=== PATIENT | female | born 1945 | race African-American/Black ===

== ENCOUNTER 2016-09-28 15:03 | Emergency (ER) | payer MEDICARE, OTHER ==
[2016-09-28 16:08] LABS: #Basophils 0.1 thou/uL (0.0-0.2); #Eosinphils 0.5 thou/uL (0.0-0.7); #Lymphocytes 1.2 thou/uL (1.20-3.40); #Monocytes 0.4 thou/uL (0.11-0.59); #Neutrophils 0.7 thou/uL (1.40-6.50); %Basophils 1.9 % (0.0-1.0); %Eosinophils 16.1 % (0.0-10.0); %Lymphocytes 42.7 % (21.0-51.0); %Monocytes 15.1 % (0.0-10.0); Hematocrit 30.9 % (36.0-47.0); Mean Platelet Volume 8.2 fL (7.4-10.4); Red Blood Cell (RBC) Count 2.93 mill/uL (4.20-5.40); White Blood Cell (WBC) Count 2.9 thou/uL (4.8-10.8)
[2016-09-28 16:17] LABS: ALT (SGPT) Less than 6 U/L (0-55); AST (SGOT) 16 U/L (5-34); Alkaline Phosphatase 70 U/L (40-150); Anion Gap 15 mmol/L (10-20); BUN (Urea Nitrogen) 26 mg/dL (9.8-20.1); Bilirubin, Total 0.5 mg/dL (0.2-1.2); Calc. Creatinine Clearance 0 mL/min (70-130); Calcium 8.3 mg/dL (7.8-10.44); Carbon Dioxide 28 mmol/L (23-31); Chloride 100 mmol/L (98-107); Estimated GFR-MDRD 9; Globulin 4.7 g/dL (2.4-3.5)
--- NOTE | 2016-09-28 16:32 | ERRECORD ---
[facility] EMERGENCY RECORD HPI WEAK-DIZZY (18:25 SHAN) CHIEF COMPLAINT: Patient presents for evaluation of weakness, Patient presents for evaluation of adult female on dialysis, missed her lunch; became weak and came in for evaluation, had dialysis yesterday, was on diabetic medications some time ago. HISTORIAN: History provided by patient. TIME COURSE: Gradual onset of symptoms. EXACERBATED BY: Patient's condition exacerbated by nothing. RELIEVED BY: Patient's condition relieved by nothing. ROS CONSTITUTIONAL: Gives a general feeling of not doing well. (15:17 SHAN) CONSTITUTIONAL PED: Negative constitutional review of systems. (18:26 SHAN) EYES: Negative eye review of systems. (15:17 SHAN) EYES PED: Negative eye review of systems. (18:26 SHAN) ENT: Negative ears, nose, throat review of systems. (15:17 SHAN) ENT PED: Negative ears, nose, throat review of systems. (18:26 SHAN) CARDIOVASCULAR: Negative cardiovascular review of systems. (15:17 SHAN) CARDIOVASCULAR PED: Negative cardiovascular review of systems. (18:26 SHAN) RESPIRATORY: Negative respiratory review of systems. (15:17 SHAN) RESPIRATORY PED: Negative respiratory review of systems. (18:26 SHAN) GI: Negative gastrointestinal review of systems. (15:17 SHAN) GI PED: Negative gastrointestinal review of systems. (18:26 SHAN) GENITOURINARY FEMALE: Negative genitourinary review of systems. (15:17 SHAN) GENITOURINARY FEMALE PED: Negative genitourinary review of systems. (18:26 SHAN) MUSCULOSKELETAL: Negative musculoskeletal review of systems. (15:17 SHAN) MUSCULOSKELETAL PED: Negative musculoskeletal review of systems. (18:26 SHAN) SKIN: Negative skin review of systems. (15:17 SHAN) SKIN PED: Negative skin review of systems. (18:26 SHAN) NEUROLOGIC: Negative neurologic review of systems. (15:17 SHAN) NEUROLOGIC PED: Negative neurologic review of systems. (18:26 SHAN) ENDOCRINE: Negative endocrine review of systems. (15:17 SHAN) ENDOCRINE PED: Negative endocrine review of systems. (18:26 SHAN) NOTES: All systems reviewed, negative except as described above. (15:17 SHAN) PAST MEDICAL HISTORY (15:15 IHAC) MEDICAL HISTORY: Notes: c/o gen. weakness, Past &a-1R&a+25V*p+0X*[id number]*c202B*c15G*c2P*p-0X&a-25V&a+1R Name: Nimco Singh : 1945 F71 MedRec: [id number] AcctNum: [id number] Prepared: [facility] Sep 28, 2016 18:32 by Interface Page 1 of 5 pMD [facility] EMERGENCY RECORD medical history includes pulmonary disease, Hypoxia, uses O2 at home 2L at home., Flu vaccine up to date, Tetanus immunization up to date, Pneumococcal vaccine up to date, Past medical history includes renal disease, end stage renal disease, dialysis MWF, history includes cardiac history, congestive heart failure,history of diabetes, Type II, diet controlled, hypertension, which has been treated. FEMALE SURGICAL HISTORY: Surgical history of appendectomy, Surgical history of dialysis shunt, to the right upper extremity, Surgical history of hysterectomy. Dialysis M/W/F. PSYCHIATRIC HISTORY: No previous psychiatric history,. verified 08/21/16. SOCIAL HISTORY: Patient denies alcohol use, Patient has no smoking history, Lives at home, with family, Patient denies alcohol use, Patient denies drug use, Patient has no smoking history. KNOWN ALLERGIES No Known Allergies (Unconfirmed) No Known Drug Allergies CURRENT MEDICATIONS (15:35 IHAC) isosorbide mononitrate: TABLET, EXTENDED RELEASE 24 HR : Strength - 30 mg : ORAL Patient Dose: 1 tab(s) Oral once a day. carvedilol: TABLET : Strength - 6.25 mg : ORAL Patient Dose: 1 tab(s) Oral 2 times a day (with meals). hydrALAZINE: TABLET : Strength - 100 mg : ORAL Patient Dose: 1 tab(s) Oral 3 times a day. pravastatin: TABLET : Strength - 20 mg : ORAL Patient Dose: 1 tab(s) Oral once a day (at bedtime). Sensipar: TABLET : Strength - 30 mg : ORAL Patient Dose: 1 tab(s) Oral once a day (in the morning). cloNIDine HCl: TABLET : Strength - 0.3 mg : ORAL Patient Dose: 1 tab(s) Oral 2 times a day. NIFEdipine: TABLET, EXTENDED RELEASE 24 HR : Strength - 90 mg : ORAL Patient Dose: 1 tab(s) Oral once a day. minoxidil: TABLET : Strength - 2.5 mg : ORAL Patient Dose: 2 tab(s) Oral once a day. pantoprazole: TABLET, DELAYED RELEASE (ENTERIC COATED) : Strength - 40 mg : ORAL Patient Dose: 1 tab(s) Oral 2 times a day. albuterol: AEROSOL (GRAM) : Strength - 90 mcg : INHALATION &a-1R&a+25V*p+0X*[id number]*c202B*c15G*c2P*p-0X&a-25V&a+1R Name: Nimco Singh : 1945 F71 MedRec: [id number] AcctNum: [id number] Prepared: [facility] Sep 28, 2016 18:32 by Interface Page 2 of 5 pMD [facility] EMERGENCY RECORD Patient Dose: 2 puff(s) Inhaler every 6 hours PRN. Procrit: VIAL (ML) : Strength - 10,000 unit/mL : INJECTION Patient Dose: 7,500 units Subcutaneous. aspirin: TABLET : Strength - 81 mg : ORAL Patient Dose: 1 tab(s) Oral once a day. Renvela: POWDER IN PACKET (EA) : Strength - 2.4 gram : ORAL Patient Dose: 2.4 g Oral 3 times a day. VITAL SIGNS VITAL SIGNS: BP: 113/52, Pulse: 98, Resp: 20, Temp: 98.0 (Oral), Pain: 0, O2 sat: 98 on Room Air, Time: 09/28/2016 15:07. (15:07 IHAC) BP: 110/43, Pulse: 63, Resp: 17, Time: 09/28/2016 15:30. (15:30 BDON) BP: 101/32, Pulse: 63, Resp: 17, O2 sat: 98, Time: 09/28/2016 16:32. (16:32 BDON) BP: 100/38, Pulse: 60, Resp: 20, O2 sat: 96, Time: 09/28/2016 16:40. (16:40 IHAC) PHYSICAL EXAM CONSTITUTIONAL PED: Patient afebrile, Patient alert, happy, smiling, interactive and playful, consolable, well hydrated, Patient appears pain free. (18:26 SHAN) CONSTITUTIONAL: Patient afebrile, Pulse normal, Blood pressure normal, Respiratory rate normal, Patient appears non toxic, Patient appears pain free, Patient alert and oriented to person, place and time, On arrival, the affect was a little dulled; but could talk. accucheck was 67; with sugar administration and later food improved to her normal per her own statements; discussed results. (15:17 SHAN) HEAD: Head exam included findings of head atraumatic, normocephalic. (15:17 SHAN) HEAD PED: Head exam included findings of head atraumatic, normocephalic. (18:26 SHAN) EYES: Eye exam normal, Eye exam included findings of eyelids normal to inspection, Pupils equally round and reactive to light, Extraocular muscles intact. (15:17 SHAN) ENT: ENT exam normal, Pharynx exam normal, Uvula exam normal, Tonsil exam normal. (15:17 SHAN) ENT PED: External Ear exam normal, tympanic membranes normal, hearing normal, Nose exam normal, Turbinates normal, Mouth exam normal, teeth normal, Pharynx exam normal, Uvula exam normal, Tonsil exam normal. (18:26 SHAN) NECK: Neck exam normal, Neck exam included findings of normal range of motion, Trachea midline. (15:17 SHAN) NECK PED: Neck exam included findings of normal range of motion, Trachea midline, Thyroid normal. (18:26 SHAN) RESPIRATORY CHEST: Respiratory and chest exam normal, Chest exam included findings of chest movement symmetrical, Chest expansion &a-1R&a+25V*p+0X*[id number]*c202B*c15G*c2P*p-0X&a-25V&a+1R Name: Nimco Singh : 1945 F71 MedRec: [id number] AcctNum: [id number] Prepared: [facility] Sep 28, 2016 18:32 by Interface Page 3 of 5 pMD [facility] EMERGENCY RECORD equal, Percussion normal. (15:17 SHAN) RESPIRATORY CHEST PED: Chest and respiratory exam findings included chest non tender, Respiratory effort easy and unlabored, with good air exchange. (18:26 SHAN) CARDIOVASCULAR: Cardiovascular assessment normal, Cardiovascular exam included findings of heart rate regular rate and rhythm, Heart sounds normal. (15:17 SHAN) CARDIOVASCULAR PED: Cardiovascular exam included findings of heart rate regular rate and rhythm, Heart sounds normal, Capillary refill less than 2 seconds. (18:26 SHAN) ABDOMEN FEMALE: Abdominal exam normal, Abdominal exam included findings of abdomen nontender, Bowel sounds normal. (15:17 SHAN) ABDOMEN PED: Abdominal exam included findings of abdomen nontender, Bowel sounds normal. (18:26 SHAN) BACK: Back exam normal. (15:17 SHAN) UPPER EXTREMITY: Upper extremity exam normal, Upper extremity exam included findings of inspection normal, Range of motion normal. (15:17 SHAN) LOWER EXTREMITY: Lower extremity exam normal, Lower extremity exam included findings of inspection normal, Range of motion normal. (15:17 SHAN) NEURO: Neuro exam normal, Oriented, but keeps relating a feeling things not being right. (15:17 SHAN) NEURO PED: Neuro exam normal. (18:26 SHAN) SKIN: Skin exam normal. (15:17 SHAN) PSYCHIATRIC: Psychiatric exam normal, Psychiatric exam included findings of patient oriented to person place and time, Normal affect, Judgment normal, Insight normal. (15:17 SHAN) DOCTOR NOTES (16:24 SHAN) TEXT: accucheck was low; symptoms resolved with po glucose and food. PATIENT STATUS: Patient has improved since arrival to emergency department. PATIENT PLAN: The patient will be discharged. DATA REVIEWED: Lab data reviewed, Reviewed EKG. PROBLEM LIST No recorded problems DIAGNOSIS (16:25 SHAN) FINAL: PRIMARY: Hypoglycemia (unspecified), ADDITIONAL: hx of diabetes, renal failure. PRESCRIPTION No recorded prescriptions DISPOSITION PATIENT: Disposition Type: Discharge, Disposition: *Discharge Home. (16:25 SHAN) &a-1R&a+25V*p+0X*[id number]*c202B*c15G*c2P*p-0X&a-25V&a+1R Name: Nimco Singh : 1945 F71 MedRec: [id number] AcctNum: [id number] Prepared: [facility] Sep 28, 2016 18:32 by Interface Page 4 of 5 pMD [facility] EMERGENCY RECORD Patient left the department. (16:52 [facility] Alva: MARISA=SONIA Herrera Bettye IHAC=Olga Parr=MD Zak, Carlos &a-1R&a+25V*p+0X*[id number]*c202B*c15G*c2P*p-0X&a-25V&a+1R Name: Nimco Singh : 1945 F71 MedRec: [id number] AcctNum: [id number] Prepared: [facility] Sep 28, 2016 18:32 by Interface Page 5 of 5 pMD MTDD
--- NOTE | 2016-09-28 16:38 | PICIS ---
[facility] EMERGENCY RECORD TRIAGE (15:13 IHAC) PATIENT: NAME: Nimco Singh, AGE: 71, GENDER: female, : Sun1945, TIME OF GREET: SunSep 28, 2016 15:04, PREFERRED LANGUAGE: Polish, ETHNICITY: Not or , ECODE BILLING MAP: [facility], SSN: [id number], Zip Code: [address], KG WEIGHT: 56.70, PHONE: , , , PERSON ID: [id number], PCP: MD SHANDA, JIGAR. (15:13 IHAC) COMPLAINT: NOT FEELING GOOD. (15:13 IHAC) ADMISSION: URGENCY: 4 Non Urgent, ADMISSION SOURCE: Home, TRANSPORT: CAR, BED: ER -02. (15:13 IHAC) ASSESSMENT: Assessment: c/o gen. weakness. (15:15 IHAC) SIRS SCORING: Heart Rate 55-109 (0), Temp range 96.8-101.1 (0), respiratory rate 12-24 (0). (15:15 IHAC) PROVIDERS: TRIAGE NURSE: Olga Parr. (15:13 IHAC) VITAL SIGNS: BP 113/52, Pulse 98, Resp 20, Temp 98.0, (Oral), Pain 0, O2 Sat 98, on Room Air, Time 09/28/2016 15:07. (15:07 IHAC) PREVIOUS VISIT ALLERGIES: No Known Drug Allergies. (15:13 IHAC) No Known Drug Allergies. (15:15 IHAC) KNOWN ALLERGIES No Known Allergies (Unconfirmed) No Known Drug Allergies CURRENT MEDICATIONS (15:35 IHAC) isosorbide mononitrate: TABLET, EXTENDED RELEASE 24 HR : Strength - 30 mg : ORAL Patient Dose: 1 tab(s) Oral once a day. carvedilol: TABLET : Strength - 6.25 mg : ORAL Patient Dose: 1 tab(s) Oral 2 times a day (with meals). hydrALAZINE: TABLET : Strength - 100 mg : ORAL Patient Dose: 1 tab(s) Oral 3 times a day. pravastatin: TABLET : Strength - 20 mg : ORAL Patient Dose: 1 tab(s) Oral once a day (at bedtime). Sensipar: TABLET : Strength - 30 mg : ORAL Patient Dose: 1 tab(s) Oral once a day (in the morning). cloNIDine HCl: TABLET : Strength - 0.3 mg : ORAL Patient Dose: 1 tab(s) Oral 2 times a day. NIFEdipine: TABLET, EXTENDED RELEASE 24 HR : Strength - 90 mg : ORAL Patient Dose: 1 tab(s) Oral once a day. minoxidil: TABLET : Strength - 2.5 mg : ORAL Patient Dose: 2 tab(s) Oral once a day. pantoprazole: &a-1R&a+25V*p+0X*c4923L*c202B*c15G*c2P*p-0X&a-25V&a+1R Name: Nimco Singh : 1945 F71 MedRec: [id number] AcctNum: [id number] Prepared: [facility] Sep 28, 2016 18:38 by Interface Page 1 of 9 pMD [facility] EMERGENCY RECORD TABLET, DELAYED RELEASE (ENTERIC COATED) : Strength - 40 mg : ORAL Patient Dose: 1 tab(s) Oral 2 times a day. albuterol: AEROSOL (GRAM) : Strength - 90 mcg : INHALATION Patient Dose: 2 puff(s) Inhaler every 6 hours PRN. Procrit: VIAL (ML) : Strength - 10,000 unit/mL : INJECTION Patient Dose: 7,500 units Subcutaneous. aspirin: TABLET : Strength - 81 mg : ORAL Patient Dose: 1 tab(s) Oral once a day. Renvela: POWDER IN PACKET (EA) : Strength - 2.4 gram : ORAL Patient Dose: 2.4 g Oral 3 times a day. VITAL SIGNS VITAL SIGNS: BP: 113/52, Pulse: 98, Resp: 20, Temp: 98.0 (Oral), Pain: 0, O2 sat: 98 on Room Air, Time: 09/28/2016 15:07. (15:07 IHAC) BP: 110/43, Pulse: 63, Resp: 17, Time: 09/28/2016 15:30. (15:30 BDON) BP: 101/32, Pulse: 63, Resp: 17, O2 sat: 98, Time: 09/28/2016 16:32. (16:32 BDON) BP: 100/38, Pulse: 60, Resp: 20, O2 sat: 96, Time: 09/28/2016 16:40. (16:40 IHAC) NURSING ASSESSMENT: CARDIOVASCULAR (15:38 IHAC) CONSTITUTIONAL: Complex assessment performed, Patient arrives ambulatory, Gait steady, History obtained from patient, Patient appears, generally ill, Patient cooperative, Patient alert, Oriented to person, place and time, Skin warm, Skin dry, Skin normal in color, Mucous membranes, dry, Patient complains of gen.weakness, REPORTS GEN. WEAKNESS THIS AM MALAISE AND POOR APPETITE. PAIN: No sudden onset of pain. RESPIRATORY/CHEST: Lungs auscultated, Breath sounds diminished, Respiratory assessment findings include respiratory effort easy, Respirations regular, Conversing normally, Neck and chest exam findings include trachea midline, Chest expansion equal, Chest movement symmetrical, Notes: GLUCOSE READING OF 67 O.J PROVIDED. SAFETY: Side rails up, Cart/Stretcher in lowest position, Call light within reach, Hospital ID band on. NURSING PROCEDURE: BEDSIDE TESTING PATIENT IDENTIFIER: Patient actively involved in identification process, Patient's identity verified by patient stating name, Patient's identity verified by patient stating date, Patient's identity verified by hospital ID bracelet. (15:20 IHAC) GLUCOSE: Glucose testing indicated for diabetic patient, Capillary blood sample, Result (mg/dl) 67. (15:15 MSPE) Glucose testing indicated for hypoglycemia, Notes: GLUCOSE OF 67 VIA &a-1R&a+25V*p+0X*a1344Z*c202B*c15G*c2P*p-0X&a-25V&a+1R Name: Nimco Singh : 1945 F71 MedRec: [id number] AcctNum: [id number] Prepared: [facility] Sep 28, 2016 18:38 by Interface Page 2 of 9 pMD [facility] EMERGENCY RECORD ACCUCHECK. DONE PER EDITH SCOTT. (15:20 IHAC) Glucose testing indicated for hypoglycemia, Notes: GLUCOSE OF 127 PER GLUCOMETER. (16:20 IHAC) FOLLOW-UP: After procedure, results given to Dr. Crespo, Notes: will give po OJ & feed pt, per MD. (15:15 MSPE) SAFETY: Side rails up, Cart/Stretcher in lowest position, Call light within reach, Hospital ID band on. (15:20 IHAC) Side rails up, Cart/Stretcher in lowest position, Call light within reach, Hospital ID band on. (16:20 IHAC) NURSING PROCEDURE: DISCHARGE NOTE (16:48 IHAC) DISCHARGE: Patient discharged to home, ambulating with assistance, family driving, accompanied by other family member, Summary of Care printed/ provided, Patient requested and was provided an electronic copy of Discharge Instructions, Transition record given to patient, Simple or moderate discharge teaching performed, Above person(s) verbalized understanding of discharge instructions and follow-up care, Patient discharged by. BELONGINGS: Belongings and valuables with patient at time of discharge include:, Belongings remain with patient. SAFETY: Side rails up, Cart/Stretcher in lowest position, Call light within reach, Hospital ID band on. NURSING PROCEDURE: EKG CHART (15:19 MSPE) EKG: EKG indicated for doesn't feel right, 12 lead EKG performed on the left chest, done by Mino Herrera RN. FOLLOW-UP: After procedure, EKG for interpretation given to Dr. Crespo. NURSING PROCEDURE: IV (15:25 MSPE) IV SITE 1: IV established, in two attempts, Unable to obtain IV access. NURSING PROCEDURE: LAB DRAW (15:45 IHAC) PATIENT IDENTIFIER: Patient actively involved in identification process. LAB DRAW: Notes: UNABLE TO ACCESS IV. LAB DRAWN BY CONNER FROM LAB. SAFETY: Side rails up, Cart/Stretcher in lowest position, Call light within reach, Hospital ID band on. NURSING PROCEDURE: NURSE NOTES (15:32 BDON) NURSES NOTES: Beverage given to patient, Meal tray given to patient. ORDER DETAILS Order Name: BLOOD GLUCOSE MONITOR, Status: Done, Time: 15:18 09/28/2016, User: CAROLINA, - Ordered for: MD Zak, Carlos, &a-1R&a+25V*p+0X*n9134O*c202B*c15G*c2P*p-0X&a-25V&a+1R Name: Nimco Singh : 1945 F71 MedRec: [id number] AcctNum: [id number] Prepared: [facility] Sep 28, 2016 18:38 by Interface Page 3 of 9 pMD [facility] EMERGENCY RECORD - Entered by: MD Crespo Stanley - [place] Sep 28, 2016 15:15, - Quantity: 1, Order Name: SURGICAL TECH ED, Status: Done, Time: 15:32 09/28/2016, User: MARISA, - Ordered for: MD Crespo Stanley, - Entered by: MD Crespo Stanley - [place] Sep 28, 2016 15:15, - Quantity: 1, Order Name: CBC with Differential, Status: Active, Time: 15:15 09/28/2016, User: ALYSIA, - Ordered for: MD Crespo Stanley, - Entered by: MD Crespo Stanley - [place] Sep 28, 2016 15:15, - Quantity: 1, Order Name: CBC with Differential, Status: Active, Time: 16:47 09/28/2016, User: ALYSIA, - Ordered for: MD Crespo Stanley, - Entered by: MD Crespo Stanley - [place] Sep 28, 2016 16:47, - Quantity: 1, Order Name: Comprehensive Metabolic Panel, Status: Active, Time: 15:15 09/28/2016, User: ALYSIA, - Ordered for: MD Crespo Stanley, - Entered by: MD Crespo Stanley - [place] Sep 28, 2016 15:15, - Quantity: 1, Order Name: Culture, Urine, Status: Active, Time: 15:15 09/28/2016, User: ALYSIA, - Ordered for: MD Crespo Stanley, - Entered by: MD Crespo Stanley - [place] Sep 28, 2016 15:15, - Quantity: 1, Order Name: EKG 12 Lead in Emergency Room, Status: Active, Time: 15:15 09/28/2016, User: ALYSIA, - Ordered for: MD Crespo Stanley, - Entered by: MD Crespo Stanley - [place] Sep 28, 2016 15:15, - Quantity: 1, Order Name: Urinalysis with Microscopic, Status: Active, Time: 15:15 09/28/2016, User: ALYSIA, - Ordered for: MD Crespo Stanley, - Entered by: MD Crespo Stanley - [facility] Sep 28, 2016 15:15, - Quantity: 1, Order Name: XR Wrist 3 Rt View STANDARD, Status: Canceled, Time: 17:09 09/28/2016, User: System, - Ordered for: MD Crespo Stanley, - Entered by: MD Crespo Stanley - [facility] Sep 28, 2016 16:46, - Quantity: 1. HPI WEAK-DIZZY (18:25 SHAN) CHIEF COMPLAINT: Patient presents for evaluation of weakness, Patient presents for evaluation of adult female on dialysis, missed her lunch; became weak and came in for evaluation, had dialysis yesterday, was on diabetic medications some time ago. HISTORIAN: History provided by patient. TIME COURSE: Gradual onset of symptoms. &a-1R&a+25V*p+0X*k6401E*c202B*c15G*c2P*p-0X&a-25V&a+1R Name: Nimco Singh : 1945 F71 MedRec: [id number] AcctNum: [id number] Prepared: [facility] Sep 28, 2016 18:38 by Interface Page 4 of 9 pMD [facility] EMERGENCY RECORD EXACERBATED BY: Patient's condition exacerbated by nothing. RELIEVED BY: Patient's condition relieved by nothing. ROS CONSTITUTIONAL: Gives a general feeling of not doing well. (15:17 SHAN) CONSTITUTIONAL PED: Negative constitutional review of systems. (18:26 SHAN) EYES: Negative eye review of systems. (15:17 SHAN) EYES PED: Negative eye review of systems. (18:26 SHAN) ENT: Negative ears, nose, throat review of systems. (15:17 SHAN) ENT PED: Negative ears, nose, throat review of systems. (18:26 SHAN) CARDIOVASCULAR: Negative cardiovascular review of systems. (15:17 SHAN) CARDIOVASCULAR PED: Negative cardiovascular review of systems. (18:26 SHAN) RESPIRATORY: Negative respiratory review of systems. (15:17 SHAN) RESPIRATORY PED: Negative respiratory review of systems. (18:26 SHAN) GI: Negative gastrointestinal review of systems. (15:17 SHAN) GI PED: Negative gastrointestinal review of systems. (18:26 SHAN) GENITOURINARY FEMALE: Negative genitourinary review of systems. (15:17 SHAN) GENITOURINARY FEMALE PED: Negative genitourinary review of systems. (18:26 SHAN) MUSCULOSKELETAL: Negative musculoskeletal review of systems. (15:17 SHAN) MUSCULOSKELETAL PED: Negative musculoskeletal review of systems. (18:26 SHAN) SKIN: Negative skin review of systems. (15:17 SHAN) SKIN PED: Negative skin review of systems. (18:26 SHAN) NEUROLOGIC: Negative neurologic review of systems. (15:17 SHAN) NEUROLOGIC PED: Negative neurologic review of systems. (18:26 SHAN) ENDOCRINE: Negative endocrine review of systems. (15:17 SHAN) ENDOCRINE PED: Negative endocrine review of systems. (18:26 SHAN) NOTES: All systems reviewed, negative except as described above. (15:17 SHAN) PAST MEDICAL HISTORY (15:15 IHAC) MEDICAL HISTORY: Notes: c/o gen. weakness, Past medical history includes pulmonary disease, Hypoxia, uses O2 at home 2L at home., Flu vaccine up to date, Tetanus immunization up to date, Pneumococcal vaccine up to date, Past medical history includes renal disease, end stage renal disease, dialysis MWF, history includes cardiac history, congestive heart failure,history of diabetes, Type II, diet controlled, hypertension, which has been treated. FEMALE SURGICAL HISTORY: Surgical history of appendectomy, &a-1R&a+25V*p+0X*f2254B*c202B*c15G*c2P*p-0X&a-25V&a+1R Name: Nimco Singh : 1945 F71 MedRec: [id number] AcctNum: [id number] Prepared: [facility] Sep 28, 2016 18:38 by Interface Page 5 of 9 pMD [facility] EMERGENCY RECORD Surgical history of dialysis shunt, to the right upper extremity, Surgical history of hysterectomy. Dialysis M/W/F. PSYCHIATRIC HISTORY: No previous psychiatric history,. verified 08/21/16. SOCIAL HISTORY: Patient denies alcohol use, Patient has no smoking history, Lives at home, with family, Patient denies alcohol use, Patient denies drug use, Patient has no smoking history. PHYSICAL EXAM CONSTITUTIONAL PED: Patient afebrile, Patient alert, happy, smiling, interactive and playful, consolable, well hydrated, Patient appears pain free. (18:26 SHAN) CONSTITUTIONAL: Patient afebrile, Pulse normal, Blood pressure normal, Respiratory rate normal, Patient appears non toxic, Patient appears pain free, Patient alert and oriented to person, place and time, On arrival, the affect was a little dulled; but could talk. accucheck was 67; with sugar administration and later food improved to her normal per her own statements; discussed results. (15:17 SHAN) HEAD: Head exam included findings of head atraumatic, normocephalic. (15:17 SHAN) HEAD PED: Head exam included findings of head atraumatic, normocephalic. (18:26 SHAN) EYES: Eye exam normal, Eye exam included findings of eyelids normal to inspection, Pupils equally round and reactive to light, Extraocular muscles intact. (15:17 SHAN) ENT: ENT exam normal, Pharynx exam normal, Uvula exam normal, Tonsil exam normal. (15:17 SHAN) ENT PED: External Ear exam normal, tympanic membranes normal, hearing normal, Nose exam normal, Turbinates normal, Mouth exam normal, teeth normal, Pharynx exam normal, Uvula exam normal, Tonsil exam normal. (18:26 SHAN) NECK: Neck exam normal, Neck exam included findings of normal range of motion, Trachea midline. (15:17 SHAN) NECK PED: Neck exam included findings of normal range of motion, Trachea midline, Thyroid normal. (18:26 SHAN) RESPIRATORY CHEST: Respiratory and chest exam normal, Chest exam included findings of chest movement symmetrical, Chest expansion equal, Percussion normal. (15:17 SHAN) RESPIRATORY CHEST PED: Chest and respiratory exam findings included chest non tender, Respiratory effort easy and unlabored, with good air exchange. (18:26 SHAN) CARDIOVASCULAR: Cardiovascular assessment normal, Cardiovascular exam included findings of heart rate regular rate and rhythm, Heart sounds normal. (15:17 SHAN) CARDIOVASCULAR PED: Cardiovascular exam included findings of heart rate regular rate and rhythm, Heart sounds normal, Capillary refill less than 2 seconds. (18:26 SHAN) ABDOMEN FEMALE: Abdominal exam normal, Abdominal exam included &a-1R&a+25V*p+0X*j0206I*c202B*c15G*c2P*p-0X&a-25V&a+1R Name: Nimco Singh : 1945 F71 MedRec: [id number] AcctNum: [id number] Prepared: SunSep 28, 2016 18:38 by Interface Page 6 of 9 pMD [facility] EMERGENCY RECORD findings of abdomen nontender, Bowel sounds normal. (15:17 SHAN) ABDOMEN PED: Abdominal exam included findings of abdomen nontender, Bowel sounds normal. (18:26 SHAN) BACK: Back exam normal. (15:17 SHAN) UPPER EXTREMITY: Upper extremity exam normal, Upper extremity exam included findings of inspection normal, Range of motion normal. (15:17 SHAN) LOWER EXTREMITY: Lower extremity exam normal, Lower extremity exam included findings of inspection normal, Range of motion normal. (15:17 SHAN) NEURO: Neuro exam normal, Oriented, but keeps relating a feeling things not being right. (15:17 SHAN) NEURO PED: Neuro exam normal. (18:26 SHAN) SKIN: Skin exam normal. (15:17 SHAN) PSYCHIATRIC: Psychiatric exam normal, Psychiatric exam included findings of patient oriented to person place and time, Normal affect, Judgment normal, Insight normal. (15:17 SHAN) EVENTS TRANSFER: Triage to Emergency Emergency Room -02. (SunSep 28, 2016 15:13 IHAC) Removed from Emergency Emergency Room -02. (16:52 IHAC) DOCTOR NOTES (16:24 SHAN) TEXT: accucheck was low; symptoms resolved with po glucose and food. PATIENT STATUS: Patient has improved since arrival to emergency department. PATIENT PLAN: The patient will be discharged. DATA REVIEWED: Lab data reviewed, Reviewed EKG. PROBLEM LIST No recorded problems DIAGNOSIS (16:25 SHAN) FINAL: PRIMARY: Hypoglycemia (unspecified), ADDITIONAL: hx of diabetes, renal failure. DISPOSITION PATIENT: Disposition Type: Discharge, Disposition: *Discharge Home. (16:25 SHAN) Patient left the department. (16:52 IHAC) INSTRUCTION (16:26 SHAN) DISCHARGE: HYPOGLYCEMIA, NON DIABETIC. FOLLOWUP: MD SHANDA, JIGAR, Nephrology, [address] [facility] [address], . SPECIAL: 1. do not skip meals 2. see if an accucheck could be used to check glucose if symptoms return &a-1R&a+25V*p+0X*c1748D*c202B*c15G*c2P*p-0X&a-25V&a+1R Name: Nimco Singh : 1945 F71 MedRec: [id number] AcctNum: [id number] Prepared: SunSep 28, 2016 18:38 by Interface Page 7 of 9 pMD [facility] EMERGENCY RECORD 3. followup if worsening 4. make apt with a primary care provider in follow up. PRESCRIPTION No recorded prescriptions IMAGING *EKG: Image captured from scanner. (15:31 MSPE) Image captured from scanner. (16:50 IHAC) *SUPPLY CHARGE SHEET: Image captured from scanner. (16:51 IHAC) *DISCHARGE INSTRUCTIONS RECEIPT: Image captured from scanner. (16:51 IHAC) ADMIN DIGITAL SIGNATURE: MD Crespo Stanley. (16:26 SHAN) Olga Parr. (16:49 IHAC) MD Crespo Stanley. (18:28 SHAN) RESULTS LABORATORY: Accuchek Collection DT: SunSep 28, 2016 15:20, *Accuchek 67 - L mg/dL, Range (70-110). (15:43 SHAN) Comprehensive Metabolic Panel Collection DT: SunSep 28, 2016 15:57, Sodium 139 mmol/L, Range (136-145), Potassium 4.3 mmol/L, Range (3.5-5.1), Chloride 100 mmol/L, Range (98-107), Carbon Dioxide 28 mmol/L, Range (23-31), Anion Gap 15 mmol/L, Range (10-20), *BUN (Urea Nitrogen) 26 - H mg/dL, Range (9.8-20.1), *Creatinine 5.71 - H mg/dL, Range (0.6-1.1), Estimated GFR-MDRD 9 , Reference Range for Estimated GFR: Greater than 90, mL/min/1.73 m2 NOTE: The MDRD equation has not been validated for use, with the elderly (over 70 years of age), women, patients with, serious comorbid condition or persons with extremes of body size, muscle, mass, or nutritional status. , *Glucose 129 - H mg/dL, Range (83-110), Calcium 8.3 mg/dL, Range (7.8-10.44), Bilirubin, Total 0.5 mg/dL, Range (0.2-1.2), Protein, Total 8.0 g/dL, Range (5.8-8.1), NOTE: Plasma values are generally 0.3 to 0.5 g/dL higher than serum values, due to the presence of fibrinogen. , *Albumin 3.3 - L g/dL, Range (3.4-4.8), *Globulin 4.7 - H g/dL, Range (2.4-3.5), *Alb/Glob Ratio 0.7 - L g/dL, Range (1.2-2.2), Alkaline Phosphatase 70 U/L, Range (40-150), AST (SGOT) 16 U/L, Range (5-34), ALT (SGPT) Less than 6 U/L, Range (0-55). (16:21 SHAN) CBC with Differential Collection DT: SunSep 28, 2016 15:57, &a-1R&a+25V*p+0X*d5145F*c202B*c15G*c2P*p-0X&a-25V&a+1R Name: Nimco Singh : 1945 F71 MedRec: [id number] AcctNum: [id number] Prepared: SunSep 28, 2016 18:38 by Interface Page 8 of 9 pMD [facility] EMERGENCY RECORD *White Blood Cell (WBC) Count 2.9 - L thou/uL, Range (4.8-10.8), HX, *Red Blood Cell (RBC) Count 2.93 - L mill/uL, Range (4.20-5.40), *Hemoglobin 9.2 - L g/dL, Range (12.0-16.0), *Hematocrit 30.9 - L %, Range (36.0-47.0), *Mean Corpuscular Volume 106.0 - H fl, Range (81.0-99.0), HX, *Mean Corpuscular Hemoglobin 31.4 - H pg, Range (27.0-31.0), *Mean Corpuscular HGB CONC 29.7 - L g/dL, Range (32.0-36.0), *RBC Distribution Width 19.9 - H %, Range (11.5-14.5), *Platelet Count 114 - L thou/uL, Range (130-400), Mean Platelet Volume 8.2 fL, Range (7.4-10.4), *%Neutrophils 24.2 - L %, Range (42.0-75.0), %Lymphocytes 42.7 %, Range (21.0-51.0), *%Monocytes 15.1 - H %, Range (0.0-10.0), *%Eosinophils 16.1 - H %, Range (0.0-10.0), HX, *%Basophils 1.9 - H %, Range (0.0-1.0), *#Neutrophils 0.7 - L thou/uL, Range (1.40-6.50), #Lymphocytes 1.2 thou/uL, Range (1.20-3.40), #Monocytes 0.4 thou/uL, Range (0.11-0.59), #Eosinphils 0.5 thou/uL, Range (0.0-0.7), #Basophils 0.1 thou/uL, Range (0.0-0.2). (16:21 ALYSIA) Accuchek Collection DT: SunSep 28, 2016 16:24, *Accuchek 127 - H mg/dL, Range (70-110). (16:47 ALYSIA) Alva: MARISA=SONIA Herrera Bettye IHAC=Olga Parr=SONIA Pantoja, Edith HATFIELD=MD Zak, Carlos &a-1R&a+25V*p+0X*l6692U*c202B*c15G*c2P*p-0X&a-25V&a+1R Name: Nimco Singh : 1945 F71 MedRec: [id number] AcctNum: [id number] Prepared: SunSep 28, 2016 18:38 by Interface Page 9 of 9 pMD [facility]
== END 2016-09-28 17:00 | disposition home or self-care (01) ==
LOC: NAV ERS 15:03
DX: E11.649 Type 2 diabetes mellitus with hypoglycemia without coma (principal); I13.2 Hypertensive heart and chronic kidney disease with heart failure and with stage 5 chronic kidney disease, or end stage renal disease; N18.6 End stage renal disease; I50.9 Heart failure, unspecified; Z99.2 Dependence on renal dialysis; Z79.82 Long term (current) use of aspirin; Z79.899 Other long term (current) drug therapy
CPT/HCPCS: 36416; 80053; 85025; 93005

== ENCOUNTER 2016-10-03 16:35 | Emergency (ER) | payer MEDICARE, OTHER, MEDICAID ==
[2016-10-03] MEDS ORDERED: Ondansetron ODT 4 MG TAB ONE (16:52)
[2016-10-03 17:44] LABS: ALT (SGPT) 7 U/L (0-55); AST (SGOT) 20 U/L (5-34); Alkaline Phosphatase 80 U/L (40-150); Anion Gap 17 mmol/L (10-20); BUN (Urea Nitrogen) 24 mg/dL (9.8-20.1); Bilirubin, Total 0.6 mg/dL (0.2-1.2); Calc. Creatinine Clearance 0 mL/min (70-130); Calcium 8.3 mg/dL (7.8-10.44); Carbon Dioxide 28 mmol/L (23-31); Chloride 102 mmol/L (98-107); Estimated GFR-MDRD 8; Globulin 4.6 g/dL (2.4-3.5); Protein, Total 8.2 g/dL (5.8-8.1)
[2016-10-03 17:45] LABS: #Basophils 0.1 thou/uL (0.0-0.2); #Eosinphils 0.4 thou/uL (0.0-0.7); #Lymphocytes 1.2 thou/uL (1.20-3.40); #Monocytes 0.3 thou/uL (0.11-0.59); #Neutrophils 1.2 thou/uL (1.40-6.50); %Basophils 1.7 % (0.0-1.0); %Monocytes 10.2 % (0.0-10.0); Hematocrit 33.5 % (36.0-47.0); Mean Platelet Volume 8.7 fL (7.4-10.4); Red Blood Cell (RBC) Count 3.15 mill/uL (4.20-5.40)
[2016-10-03 17:46] LABS: White Blood Cell (WBC) Count 3.1 thou/uL (4.8-10.8)
[2016-10-03] MEDS ORDERED: Pantoprazole 40 MG VIAL ONE (18:02)
--- NOTE | 2016-10-03 20:53 | ERRECORD ---
[facility] NAUSEA/VOMITING/DIARRHEA (SunOct 04, 2016 01:16 MPUR) CHIEF COMPLAINT: Patient presents for evaluation of nausea, Patient presents for evaluation of vomiting, Patient presents for evaluation of diarrhea. HISTORIAN: History provided by patient, History provided by patient's family, 71 y.o female on dialysis who this morning ate cereal for breakfast an shortly thereafter vomited up a large amount and also developed diarrhea. SHe did both all morning and then continued with cramping in the afternoon. Because of this she presented to the ED. LOCATION FEMALE: Symptoms are generalized, no radiation, No migration of pain. QUALITY: Pain is dull in nature, described as aching, described as cramping. TIME COURSE: Sudden onset of symptoms, Symptoms are improving. ASSOCIATED WITH FEMALE: No associated fever, No associated flank pain, Associated with loss of appetite, No associated melena. EXACERBATED BY: Patient's condition exacerbated by nothing. RELIEVED BY: Patient's condition relieved by nothing. ROS (SunOct 04, 2016 01:20 MPUR) CONSTITUTIONAL: Historian denies fever. EYES: Historian denies eye pain. ENT: Historian denies rhinorrhea. CARDIOVASCULAR: Historian denies chest pain. RESPIRATORY: Historian denies cough. GI: see HPI. MUSCULOSKELETAL: Historian denies arthralgias. SKIN: Historian denies rash. NEUROLOGIC: Historian denies seizures. ENDOCRINE: Historian denies skin changes. HEMO/LYMPHATIC: Historian denies easy bruising. PAST MEDICAL HISTORY (16:50 JPAR) MEDICAL HISTORY: Notes: c/o gen. weakness, Past medical history includes pulmonary disease, Hypoxia, uses O2 at home 2L at home., Flu vaccine up to date, Tetanus immunization up to date, Pneumococcal vaccine up to date, Past medical history includes renal disease, end stage renal disease, dialysis MWF, history includes cardiac history, congestive heart failure,history of diabetes, Type II, diet controlled, hypertension, which has been treated. FEMALE SURGICAL HISTORY: Surgical history of appendectomy, Surgical history of dialysis shunt, to the right upper extremity, Surgical history of hysterectomy. Dialysis M/W/F. PSYCHIATRIC HISTORY: No previous psychiatric history,. verified 08/21/16. SOCIAL HISTORY: Patient denies alcohol use, Patient has no smoking history, Lives at home, with family, Patient denies alcohol use, Patient denies drug use, Patient has no smoking history. &a-1R&a+25V*p+0X*g1013Q*c202B*c15G*c2P*p-0X&a-25V&a+1R Name: Nimco Singh : 1945 F71 MedRec: [id number] AcctNum: [id number] Prepared: SunOct 04, 2016 01:28 by Interface Page 1 of 4 pMD [facility] EMERGENCY RECORD KNOWN ALLERGIES No Known Allergies No Known Drug Allergies (Unconfirmed) CURRENT MEDICATIONS (16:49 JPAR) isosorbide mononitrate: TABLET, EXTENDED RELEASE 24 HR : Strength - 30 mg : ORAL Patient Dose: 1 tab(s) Oral once a day. carvedilol: TABLET : Strength - 6.25 mg : ORAL Patient Dose: 1 tab(s) Oral 2 times a day (with meals). hydrALAZINE: TABLET : Strength - 100 mg : ORAL Patient Dose: 1 tab(s) Oral 3 times a day. pravastatin: TABLET : Strength - 20 mg : ORAL Patient Dose: 1 tab(s) Oral once a day (at bedtime). Sensipar: TABLET : Strength - 30 mg : ORAL Patient Dose: 1 tab(s) Oral once a day (in the morning). cloNIDine HCl: TABLET : Strength - 0.3 mg : ORAL Patient Dose: 1 tab(s) Oral 2 times a day. NIFEdipine: TABLET, EXTENDED RELEASE 24 HR : Strength - 90 mg : ORAL Patient Dose: 1 tab(s) Oral once a day. minoxidil: TABLET : Strength - 2.5 mg : ORAL Patient Dose: 2 tab(s) Oral once a day. pantoprazole: TABLET, DELAYED RELEASE (ENTERIC COATED) : Strength - 40 mg : ORAL Patient Dose: 1 tab(s) Oral 2 times a day. albuterol: AEROSOL (GRAM) : Strength - 90 mcg : INHALATION Patient Dose: 2 puff(s) Inhaler every 6 hours PRN. Procrit: VIAL (ML) : Strength - 10,000 unit/mL : INJECTION Patient Dose: 7,500 units Subcutaneous. aspirin: TABLET : Strength - 81 mg : ORAL Patient Dose: 1 tab(s) Oral once a day. Renvela: POWDER IN PACKET (EA) : Strength - 2.4 gram : ORAL Patient Dose: 2.4 g Oral 3 times a day. VITAL SIGNS VITAL SIGNS: BP: 181/77, Pulse: 95, Resp: 20, Temp: 97.4 (Oral), Pain: 0, O2 sat: 94 on Room Air, Time: 10/03/2016 16:46. (16:46 JPAR) BP: 145/65, Pulse: 89, Resp: 20, Pain: 0, O2 sat: 94 on Room Air, Time: 10/03/2016 18:35. (18:35 JPAR) &a-1R&a+25V*p+0X*m4256N*c202B*c15G*c2P*p-0X&a-25V&a+1R Name: Nimco Singh : 1945 F71 MedRec: [id number] AcctNum: [id number] Prepared: SunOct 04, 2016 01:28 by Interface Page 2 of 4 pMD [facility] EMERGENCY RECORD BP: 155/70, Pulse: 93, Resp: 20, Temp: 98.3 (Oral), O2 sat: 93 on Room Air, Time: 10/03/2016 19:36. (19:36 KASA) PHYSICAL EXAM CONSTITUTIONAL: Vital signs reviewed. (SunOct 04, 2016 01:20 MPUR) HEAD: Head exam included findings of head atraumatic. (SunOct 04, 2016 01:20 MPUR) EYES: Eye exam included findings of eyelids normal to inspection, Sclera normal. (SunOct 04, 2016 01:20 MPUR) ENT: Nose exam normal, no nasal deformity, mucous membranes moist. (SunOct 04, 2016 01:20 MPUR) NECK: Trachea midline, no contusions. (SunOct 04, 2016 01:20 MPUR) RESPIRATORY CHEST: Respiratory exam included findings of no respiratory distress, Breath sounds clear, no increased work of breathing, rate nl. (SunOct 04, 2016 01:20 MPUR) CARDIOVASCULAR: Cardiovascular exam included findings of heart rate regular rate and rhythm, Heart sounds normal. (SunOct 04, 2016 01:20 MPUR) ABDOMEN FEMALE: Abdominal exam included findings of abdomen tender, diffusely, Bowel sounds, hypoactive, Liver normal, Spleen normal, no distension, no mass, no pulsatile masses, no peritoneal signs. (SunOct 04, 2016 01:21 MPUR) LOWER EXTREMITY: no cyanosis, no edema. (SunOct 04, 2016 01:20 MPUR) NEURO: Speech normal, Memory normal, alert, moving all extremities well. (SunOct 04, 2016 01:20 MPUR) SKIN: Skin exam included findings of skin warm, dry, no rash. (SunOct 04, 2016 01:20 MPUR) PSYCHIATRIC: Normal affect, Recent memory normal. (SunOct 04, 2016 01:20 MPUR) MEDICATION ADMINISTRATION SUMMARY Drug Name: Protonix intravenous, Dose Ordered: 40 mg, Route: IV Push, Status: Given, Time: 18:08 10/03/2016, Drug Name: Phenergan oral, Dose Ordered: 12.5 mg, Route: Oral, Status: Given, Time: 17:53 10/03/2016, Drug Name: Zofran oral, Dose Ordered: 4 mg, Route: Oral, Status: Given, Time: 17:00 10/03/2016, Detailed record available in Medication Service section. DOCTOR NOTES RE-EVALUATION: Routine re-evaluation, after administration of antiemetics, The patient's condition has improved, still cramping. Will add additional meds. (17:51 MPUR) Routine re-evaluation, after administration of antiemetics, Routine re-evaluation, after administration of, Protonix, Phenergan, The &a-1R&a+25V*p+0X*m6121S*c202B*c15G*c2P*p-0X&a-25V&a+1R Name: Nimco Singh : 1945 F71 MedRec: [id number] AcctNum: [id number] Prepared: SunOct 04, 2016 01:28 by Interface Page 3 of 4 pMD [facility] EMERGENCY RECORD patient's condition has improved, Feeling much better. Ready for discharge. (SunOct 04, 2016 01:24 MPUR) TEXT: I have reviewed and agree with nurse's past medical, family, and social history as documented on chart. Pt's vital signs have been reviewed. (SunOct 04, 2016 01:20 MPUR) PROBLEM LIST No recorded problems DIAGNOSIS (19:33 MPUR) FINAL: PRIMARY: Vomiting and diarrhea. PRESCRIPTION (19:35 MPUR) Zofran ODT: TABLET, RAPID DISSOLVE : 4 mg : ORAL : Quantity: 1 Unit: tab(s) Route: ORAL Schedule: every 4 hours prn Dispense: 10 May substitute. Refills: No Refills . NOTES: SL prn N & V No Refills. DISPOSITION PATIENT: Disposition Type: Discharge, Disposition: *Discharge Home. (19:33 MPISAURO) Patient left the department. (19:55 JENNIE) Alva: EMILY=SONIA Gonzalez, Alo SCHNEIDER=SONIA Webster, Aniya MPUR=MD Patience, Feliz &a-1R&a+25V*p+0X*b2274M*c202B*c15G*c2P*p-0X&a-25V&a+1R Name: Nimco Singh : 1945 F71 MedRec: [id number] AcctNum: [id number] Prepared: SunOct 04, 2016 01:28 by Interface Page 4 of 4 pMD MTDD
--- NOTE | 2016-10-03 20:58 | PICIS ---
[facility] EMERGENCY RECORD TRIAGE (SunOct 03, 2016 16:48 JPAR) TRIAGE NOTES: ABDOMINAL PAIN, VOMITED 3 TIMES, DIARRHEA x 4 THIS AM. (SunOct 03, 2016 16:48 JPAR) PATIENT: NAME: Nimco Singh, AGE: 71, GENDER: female, : Sun1945, TIME OF GREET: SunOct 03, 2016 16:36, PREFERRED LANGUAGE: Gibraltarian, ETHNICITY: Not or , ECODE BILLING MAP: [facility] ER, SSN: [id number], Zip Code: [address], KG WEIGHT: 56.70, PHONE: , , , PERSON ID: [id number], PCP: [facility]. 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 (SunOct 03, 2016 16:48 JPAR) ADMISSION: URGENCY: 4 Non Urgent, ADMISSION SOURCE: Home, TRANSPORT: CAR, BED: TRIAGE. (SunOct 03, 2016 16:48 JPAR) ASSESSMENT: Assessment: NVD AFTER EATING CEREAL THIS AM, Symptoms began 7 AM, Symptoms began 10 hours ago. (16:50 JPAR) PAIN: No complaint of pain, Location JUST NAUSEA NO PAIN. (16:50 JPAR) IMMUNIZATIONS: Flu vaccine up to date, Tetanus immunization up to date, Pneumococcal vaccine up to date. (16:50 JPAR) SIRS SCORING: Heart Rate 55-109 (0), Temp range 96.8-101.1 (0), respiratory rate 12-24 (0), Mental Status altered: no (0), Infection or Suspected Infection: No. (16:50 JPAR) TRIAGE SCREENING: Patient denies suicidal ideation, Patient denies presence of domestic violence. (16:50 JPAR) PROVIDERS: TRIAGE NURSE: Alo Gonzalez RN. (SunOct 03, 2016 16:48 JPAR) VITAL SIGNS: BP 181/77, Pulse 95, Resp 20, Temp 97.4, (Oral), Pain 0, O2 Sat 94, on Room Air, Time 10/03/2016 16:46. (16:46 JPAR) PREVIOUS VISIT ALLERGIES: No Known Drug Allergies. (SunOct 03, 2016 16:48 JPAR) No Known Drug Allergies. (16:50 JPAR) KNOWN ALLERGIES No Known Allergies No Known Drug Allergies (Unconfirmed) CURRENT MEDICATIONS (16:49 JPAR) isosorbide mononitrate: TABLET, EXTENDED RELEASE 24 HR : Strength - 30 mg : ORAL Patient Dose: 1 tab(s) Oral once a day. carvedilol: TABLET : Strength - 6.25 mg : ORAL Patient Dose: 1 tab(s) Oral 2 times a day (with meals). hydrALAZINE: TABLET : Strength - 100 mg : ORAL Patient Dose: 1 tab(s) Oral 3 times a day. pravastatin: TABLET : Strength - 20 mg : ORAL Patient Dose: 1 tab(s) Oral once a day (at bedtime). &a-1R&a+25V*p+0X*[id number]*c202B*c15G*c2P*p-0X&a-25V&a+1R Name: Nimco Singh Kimber : 1945 F71 MedRec: [id number] AcctNum: [id number] Prepared: SunOct 04, 2016 01:33 by Interface Page 1 of 11 pMD [facility] EMERGENCY RECORD Sensipar: TABLET : Strength - 30 mg : ORAL Patient Dose: 1 tab(s) Oral once a day (in the morning). cloNIDine HCl: TABLET : Strength - 0.3 mg : ORAL Patient Dose: 1 tab(s) Oral 2 times a day. NIFEdipine: TABLET, EXTENDED RELEASE 24 HR : Strength - 90 mg : ORAL Patient Dose: 1 tab(s) Oral once a day. minoxidil: TABLET : Strength - 2.5 mg : ORAL Patient Dose: 2 tab(s) Oral once a day. pantoprazole: TABLET, DELAYED RELEASE (ENTERIC COATED) : Strength - 40 mg : ORAL Patient Dose: 1 tab(s) Oral 2 times a day. albuterol: AEROSOL (GRAM) : Strength - 90 mcg : INHALATION Patient Dose: 2 puff(s) Inhaler every 6 hours PRN. Procrit: VIAL (ML) : Strength - 10,000 unit/mL : INJECTION Patient Dose: 7,500 units Subcutaneous. aspirin: TABLET : Strength - 81 mg : ORAL Patient Dose: 1 tab(s) Oral once a day. Renvela: POWDER IN PACKET (EA) : Strength - 2.4 gram : ORAL Patient Dose: 2.4 g Oral 3 times a day. VITAL SIGNS VITAL SIGNS: BP: 181/77, Pulse: 95, Resp: 20, Temp: 97.4 (Oral), Pain: 0, O2 sat: 94 on Room Air, Time: 10/03/2016 16:46. (16:46 JPAR) BP: 145/65, Pulse: 89, Resp: 20, Pain: 0, O2 sat: 94 on Room Air, Time: 10/03/2016 18:35. (18:35 JPAR) BP: 155/70, Pulse: 93, Resp: 20, Temp: 98.3 (Oral), O2 sat: 93 on Room Air, Time: 10/03/2016 19:36. (19:36 KASA) NURSING ASSESSMENT: ABDOMEN (16:49 JPAR) CONSTITUTIONAL: Patient arrives ambulatory, Gait steady, History obtained from patient, Patient appears comfortable, Patient cooperative, Patient alert, Oriented to person, place and time, Skin warm, Skin dry, Skin normal in color, Mucous membranes pink, Mucous membranes moist, Patient complains of Lower abdominal pain and nausea, After eating cereal this am, may have had bad milk. nausea and vomiting 4 times after eating. PAIN: aching pain, cramping pain, periumbilical, to the suprapubic region, Onset of pain 9-10 hours, Patient rates pain as 0 out of 10, no pain just nausea at time of triage. ABDOMEN: Abdomen assessment findings include abdomen symmetrical, no discolorations, no ecchymosis, no hernia, no incision(s), no &a-1R&a+25V*p+0X*[id number]*c202B*c15G*c2P*p-0X&a-25V&a+1R Name: Nimco Singh : 1945 F71 MedRec: [id number] AcctNum: [id number] Prepared: SunOct 04, 2016 01:33 by Interface Page 2 of 11 pMD [facility] EMERGENCY RECORD lesions, no scars, no striae, no hemorrhoids, Abdomen soft, non-tender, no pulsatile mass, no dullness with percussion, no resonance with percussion, Bowel sound normal, Associated with nausea, Associated with vomiting, history of vomiting, Number of times: 4 times, vomiting clear fluid, Associated with diarrhea, loose, Number of episodes: 4 times, no associated constipation, no associated weight change, no associated appetite change, no associated foreign travel. GENITOURINARY FEMALE: no associated urinary complaints. SAFETY: Side rails up, Cart/Stretcher in lowest position, Call light within reach, Hospital ID band on. NURSING PROCEDURE: DISCHARGE NOTE (19:41 KASA) DISCHARGE: Patient discharged to home, in a wheelchair, family driving, accompanied by other family member, Summary of Care printed/ provided, Discharge instructions given to patient, Simple or moderate discharge teaching performed, . Educated and provided handout regarding diagnosis of: Vomiting and diarrhea Follow up with PCP as needed, Prescriptions given and instructions on side effects given, Name of prescription(s) given: Davin PIERCE, Above person(s) verbalized understanding of discharge instructions and follow-up care. BELONGINGS: Belongings and valuables with patient upon arrival to the Emergency Department include:, Belongings and valuables with patient at time of discharge include:, Belongings remain with patient, Valuables remain with patient. SAFETY: Side rails up, Cart/Stretcher in lowest position, Call light within reach, Hospital ID band on. NURSING PROCEDURE: IV PATIENT IDENITIFIER: Patient actively involved in identification process, Patient's identity verified by patient stating name, Patient's identity verified by patient stating date, Patient's identity verified by hospital ID bracelet, Patient's identity verified by family member. (17:00 JPAR) IV SITE 1: IV therapy indicated for hydration, IV therapy indicated for medication administration, IV established, to the left foot, using a 20 gauge catheter, in one attempt, IV site prepped with clorohexaphine, Saline lock established, Flushed with normal saline (mls): 10, Labs drawn at time of placement, labeled in the presence of the patient and sent to lab. (17:00 JPAR) FOLLOW-UP SITE 1: After procedure, no drainage at IV site, After procedure, no swelling at IV site, After procedure, no redness at IV site, IV discontinued, due to patient being discharged, catheter intact, Notes: IV discontinued. Tip intact. Pressure applied along with 2x2 and tape. Patient tolerated procedure well. (19:41 KASA) SAFETY: Side rails up, Cart/Stretcher in lowest position, Call &a-1R&a+25V*p+0X*[id number]*c202B*c15G*c2P*p-0X&a-25V&a+1R Name: Nimco Singh : 1945 F71 MedRec: [id number] AcctNum: [id number] Prepared: SunOct 04, 2016 01:33 by Interface Page 3 of 11 pMD [facility] EMERGENCY RECORD light within reach, Hospital ID band on. (17:00 JPAR) NURSING PROCEDURE: NURSE NOTES (18:08 JPAR) NURSES NOTES: Patient in no apparent distress, Notes: Protonix - 40mg administered Slow IVP over 2 full minutes then flushed with NS 10cc. NURSING PROCEDURE: TEACHING (19:40 KASA) TEACHING: Simple or moderate teaching performed, by SONIA Kwan, Diet For Vomiting Or Diarrhea [6 Yr-Adult] Once the vomiting stops, then... During The First 12-24 Hours follow the diet below: BEVERAGES: Plain water, sport drinks like Gatorade, soft drinks without caffeine; mineral water (plain or flavored); clear fruit juices, decaffeinated tea and coffee. SOUPS: Clear broth, consomm, and bouillon DESSERTS: Plain gelatin (Jell-O), popsicles and fruit juice bars. As you feel better, you may add 6-8 oz of yogurt per day. During The Next 24 Hours you may add the following to the above: Hot cereal, plain toast, bread, rolls, crackers Plain noodles, rice, mashed potatoes, chicken noodle or rice soup Unsweetened canned fruit (avoid pineapple), bananas Limit fat intake to less than 15 grams per day by avoiding margarine, butter, oils, mayonnaise, sauces, gravies, fried foods, peanut butter, meat, poultry, and fish. Limit fiber; avoid raw or cooked vegetables, fresh fruits (except bananas), and bran cereals. Limit caffeine and chocolate. No spices or seasonings except salt. During The Next 24 Hours Gradually resume a normal diet, as you feel better and your symptoms lessen. PATIENT &/OR CAREGIVER VERBALIZED UNDERSTANDING OF THE TEACHING PROVIDED AND WAS ABLE TO DEMONSTRATE TEACHING EVIDENCED BY TEACH BACK., Above person(s) verbalized understanding of teaching given. Simple or moderate teaching performed, by SONIA Michaud, Prescriptions given and instructions on side effects given, Name of prescription(s) given: ZOFRAN (ONDANSETRON) is used to treat nausea and vomiting caused by chemotherapy. It is also used to prevent or treat nausea and vomiting after surgery. SIDE EFFECTS THAT YOU SHOULD REPORT TO YOUR DOCTOR OR HEALTH SPUDDER SOON POSSIBLE: allergic reactions like skin rash, itching or hives, swelling of the face, lips, or tongue, breathing problems, confusion, dizziness, fast or irregular heartbeat, feeling faint or lightheaded, falls, fever and chills, loss of balance or coordination, seizures, sweating, swelling of the hands and feet, tightness in the chest, tremors, unusually weak or tired. SIDE EFFECTS THAT USUALLY DO NOT REQUIRE MEDICAL ATTENTION (but should report if they continue or are bothersome): constipation or diarrhea, headache, Notes: Additional information about the medication you were given and/or prescribed. &a-1R&a+25V*p+0X*o9152I*c202B*c15G*c2P*p-0X&a-25V&a+1R Name: Nimco Singh : 1945 F71 MedRec: [id number] AcctNum: [id number] Prepared: SunOct 04, 2016 01:33 by Interface Page 4 of 11 pMD [facility] EMERGENCY RECORD Check with your doctor or health care coordinator as soon as you can if you have any sign of an allergic reaction. Keep out of the reach of children. How to take: These tablets are made to dissolve in the mouth. Do not try to push the tablet through the foil backing. With dry hands, peel away the foil backing and gently remove the tablet. Place the tablet in the mouth and allow it to dissolve, then swallow. While you may take these tablets with water, it is not necessary to do so. Let your health care provided know if your child has any of these conditions: heart disease history of irregular heartbeat liver disease low levels of magnesium or potassium in the blood an unusual or allergic reaction to ondansetron, granisetron, other medicines, foods, dyes, or preservatives or trying to get breast-feeding Do not take this medicine with any of the following medications: apomorphine certain medicines for fungal infections like fluconazole, itraconazole, ketoconazole, posaconazole, voriconazole cisapride dofetilide dronedarone pimozide thioridazine ziprasidone This medicine may also interact with the following medications: carbamazepine certain medicines for depression, anxiety, or psychotic disturbances fentanyl linezolid MAOIs like Carbex, Eldepryl, Marplan, Nardil, and Parnate methylene blue (injected into a vein) other medicines that prolong the QT interval (cause an abnormal heart rhythm) phenytoin rifampicin tramadol This list may not describe all possible interactions. Give your health care provider a list of all the medicines, herbs, non-prescription drugs, or dietary supplements you use. Also tell them if you smoke, drink alcohol, or use illegal drugs. Some items may interact with your medicine. PARENT/ GUARDIAN VERBALIZES UNDERSTANDING OF THE TEACHING PROVIDED AND WAS ABLE TO DEMONSTRATE TEACHING EVIDENCED BY TEACH BACK. If you have previously been advised against any of the above &a-1R&a+25V*p+0X*[id number]*c202B*c15G*c2P*p-0X&a-25V&a+1R Name: Nimco Singh : 1945 F71 MedRec: [id number] AcctNum: [id number] Prepared: SunOct 04, 2016 01:33 by Interface Page 5 of 11 pMD [facility] EMERGENCY RECORD mentioned possible treatments due to a pre-existing condition, speak with your felecia PCP before implementing. ORDER DETAILS Order Name: CBC with Differential, Status: Active, Time: 16:57 10/03/2016, User: DINA, - Ordered for: MD Morin Marcus, - Entered by: MD Morin Marcus - Tue Oct 03, 2016 16:57, - Quantity: 1, Order Name: Comprehensive Metabolic Panel, Status: Active, Time: 16:57 10/03/2016, User: DINA, - Ordered for: MD Morin Marcus, - Entered by: MD Morin Marcus - Tue Oct 03, 2016 16:57, - Quantity: 1, Order Name: XR Abdomen 2 View/1 View Cxr, Status: Active, Time: 17:41 10/03/2016, User: DINA, - Ordered for: MD Morin Marcus, - Entered by: MD Morin Marcus - Tue Oct 03, 2016 17:41, - Quantity: 1. MEDICATION ADMINISTRATION SUMMARY Drug Name: Protonix intravenous, Dose Ordered: 40 mg, Route: IV Push, Status: Given, Time: 18:08 10/03/2016, Drug Name: Phenergan oral, Dose Ordered: 12.5 mg, Route: Oral, Status: Given, Time: 17:53 10/03/2016, Drug Name: Zofran oral, Dose Ordered: 4 mg, Route: Oral, Status: Given, Time: 17:00 10/03/2016, Detailed record available in Medication Service section. MEDICATION SERVICE Phenergan oral: Order: Phenergan oral (promethazine HCl) - Dose: 12.5 mg : Oral Schedule: Now Ordered by: Feliz Morin MD Entered by: Feliz Morin MD SunOct 03, 2016 17:43 , Acknowledged by: Alo Gonzalez RN SunOct 03, 2016 17:51 Documented as given by: Alo Gonzalez RN SunOct 03, 2016 17:53 Patient, Medication, Dose, Route and Time verified prior to administration. Patient appears Awake and alert- acceptable, Correct patient, time, route, dose and medication confirmed prior to administration, Patient advised of actions and side-effects prior to administration, Allergies confirmed and medications reviewed prior to administration, Patient in position of comfort, Side rails up, Cart in lowest position, Call light in reach. Protonix intravenous: Order: Protonix intravenous (pantoprazole sodium) - Dose: 40 mg : IV Push Schedule: Now &a-1R&a+25V*p+0X*o7188Z*c202B*c15G*c2P*p-0X&a-25V&a+1R Name: Nimco Singh : 1945 F71 MedRec: [id number] AcctNum: [id number] Prepared: SunOct 04, 2016 01:33 by Interface Page 6 of 11 pMD [facility] EMERGENCY RECORD Ordered by: Feliz Morin MD Entered by: Alo Gonzalez RN Oct 03, 2016 18:42 Documented as given by: Alo Gonzalez RN Oct 03, 2016 18:08 Patient, Medication, Dose, Route and Time verified prior to administration. IV SITE #1 IVP, initial medication, Slowly, Awake and alert- acceptable, Line traced prior to administration, Catheter placement confirmed via flush prior to administration, IV site without signs or symptoms of infiltration during medication administration, No swelling during administration, No drainage during administration, IV flushed after administration, Correct patient, time, route, dose and medication confirmed prior to administration, Patient advised of actions and side-effects prior to administration, Allergies confirmed and medications reviewed prior to administration, Patient in position of comfort, Side rails up, Cart in lowest position, Call light in reach, diluted in 20cc NS and administered slow IVP over 2 minutes then flushed with 10cc NS. Zofran oral: Order: Zofran oral (ondansetron HCl) - Dose: 4 mg : Oral Ordered by: Feliz Morin MD Entered by: Feliz Morin MD Oct 03, 2016 16:58 Documented as given by: Alo Gonzalez RN Oct 03, 2016 17:00 Patient, Medication, Dose, Route and Time verified prior to administration. Patient appears Awake and alert- acceptable, Correct patient, time, route, dose and medication confirmed prior to administration, Patient advised of actions and side-effects prior to administration, Allergies confirmed and medications reviewed prior to administration, Patient in position of comfort, Side rails up, Cart in lowest position, Family at bedside, Call light in reach. HPI NAUSEA/VOMITING/DIARRHEA (SunOct 04, 2016 01:16 MPUR) CHIEF COMPLAINT: Patient presents for evaluation of nausea, Patient presents for evaluation of vomiting, Patient presents for evaluation of diarrhea. HISTORIAN: History provided by patient, History provided by patient's family, 71 y.o female on dialysis who this morning ate cereal for breakfast an shortly thereafter vomited up a large amount and also developed diarrhea. SHe did both all morning and then continued with cramping in the afternoon. Because of this she presented to the ED. LOCATION FEMALE: Symptoms are generalized, no radiation, No migration of pain. QUALITY: Pain is dull in nature, described as aching, described as cramping. TIME COURSE: Sudden onset of symptoms, Symptoms are improving. ASSOCIATED WITH FEMALE: No associated fever, No associated flank pain, Associated with loss of appetite, No associated melena. EXACERBATED BY: Patient's condition exacerbated by nothing. RELIEVED BY: Patient's condition relieved by nothing. &a-1R&a+25V*p+0X*e3725U*c202B*c15G*c2P*p-0X&a-25V&a+1R Name: Nimco Singh : 1945 F71 MedRec: [id number] AcctNum: [id number] Prepared: SunOct 04, 2016 01:33 by Interface Page 7 of 11 pMD [facility] EMERGENCY RECORD ROS (SunOct 04, 2016 01:20 MPUR) CONSTITUTIONAL: Historian denies fever. EYES: Historian denies eye pain. ENT: Historian denies rhinorrhea. CARDIOVASCULAR: Historian denies chest pain. RESPIRATORY: Historian denies cough. GI: see HPI. MUSCULOSKELETAL: Historian denies arthralgias. SKIN: Historian denies rash. NEUROLOGIC: Historian denies seizures. ENDOCRINE: Historian denies skin changes. HEMO/LYMPHATIC: Historian denies easy bruising. PAST MEDICAL HISTORY (16:50 JPAR) MEDICAL HISTORY: Notes: c/o gen. weakness, Past medical history includes pulmonary disease, Hypoxia, uses O2 at home 2L at home., Flu vaccine up to date, Tetanus immunization up to date, Pneumococcal vaccine up to date, Past medical history includes renal disease, end stage renal disease, dialysis MWF, history includes cardiac history, congestive heart failure,history of diabetes, Type II, diet controlled, hypertension, which has been treated. FEMALE SURGICAL HISTORY: Surgical history of appendectomy, Surgical history of dialysis shunt, to the right upper extremity, Surgical history of hysterectomy. Dialysis M/W/F. PSYCHIATRIC HISTORY: No previous psychiatric history,. verified 08/21/16. SOCIAL HISTORY: Patient denies alcohol use, Patient has no smoking history, Lives at home, with family, Patient denies alcohol use, Patient denies drug use, Patient has no smoking history. PHYSICAL EXAM CONSTITUTIONAL: Vital signs reviewed. (SunOct 04, 2016 01:20 MPUR) HEAD: Head exam included findings of head atraumatic. (SunOct 04, 2016 01:20 MPUR) EYES: Eye exam included findings of eyelids normal to inspection, Sclera normal. (SunOct 04, 2016 01:20 MPUR) ENT: Nose exam normal, no nasal deformity, mucous membranes moist. (SunOct 04, 2016 01:20 MPUR) NECK: Trachea midline, no contusions. (SunOct 04, 2016 01:20 MPUR) RESPIRATORY CHEST: Respiratory exam included findings of no respiratory distress, Breath sounds clear, no increased work of breathing, rate nl. (SunOct 04, 2016 01:20 MPUR) CARDIOVASCULAR: Cardiovascular exam included findings of heart rate regular rate and rhythm, Heart sounds normal. (SunOct 04, 2016 01:20 MPUR) ABDOMEN FEMALE: Abdominal exam included findings of abdomen tender, diffusely, Bowel sounds, &a-1R&a+25V*p+0X*m1759N*c202B*c15G*c2P*p-0X&a-25V&a+1R Name: Nimco Singh : 1945 F71 MedRec: [id number] AcctNum: [id number] Prepared: SunOct 04, 2016 01:33 by Interface Page 8 of 11 pMD [facility] EMERGENCY RECORD hypoactive, Liver normal, Spleen normal, no distension, no mass, no pulsatile masses, no peritoneal signs. (SunOct 04, 2016 01:21 MPUR) LOWER EXTREMITY: no cyanosis, no edema. (SunOct 04, 2016 01:20 MPUR) NEURO: Speech normal, Memory normal, alert, moving all extremities well. (SunOct 04, 2016 01:20 MPUR) SKIN: Skin exam included findings of skin warm, dry, no rash. (SunOct 04, 2016 01:20 MPUR) PSYCHIATRIC: Normal affect, Recent memory normal. (SunOct 04, 2016 01:20 MPUR) LAB INTERPRETATION (SunOct 04, 2016 01:20 MPUR) INTERPRETATION: No significant lab abnormalities except as noted above. EVENTS TRANSFER: Triage to Emergency Triage. (SunOct 03, 2016 16:48 JPAR) Emergency Triage to Emergency Room -05. (16:49 JPAR) Removed from Emergency Emergency Room -05. (19:55 KASA) DOCTOR NOTES RE-EVALUATION: Routine re-evaluation, after administration of antiemetics, The patient's condition has improved, still cramping. Will add additional meds. (17:51 MPUR) Routine re-evaluation, after administration of antiemetics, Routine re-evaluation, after administration of, Protonix, Phenergan, The patient's condition has improved, Feeling much better. Ready for discharge. (SunOct 04, 2016 01:24 MPUR) TEXT: I have reviewed and agree with nurse's past medical, family, and social history as documented on chart. Pt's vital signs have been reviewed. (SunOct 04, 2016 01:20 MPUR) PROBLEM LIST No recorded problems DIAGNOSIS (19:33 MPUR) FINAL: PRIMARY: Vomiting and diarrhea. DISPOSITION PATIENT: Disposition Type: Discharge, Disposition: *Discharge Home. (19:33 MPUR) Patient left the department. (19:55 KASA) INSTRUCTION (19:37 MPUR) DISCHARGE: DIET, VOMITING OR DIARRHEA [6YR-ADULT]. FOLLOWUP: [facility], [address] [place] [address] , . SPECIAL: clear liquids tonight, then increase diet as tolerated. &a-1R&a+25V*p+0X*e1688P*c202B*c15G*c2P*p-0X&a-25V&a+1R Name: Nimco Singh : 1945 F71 MedRec: [id number] AcctNum: [id number] Prepared: SunOct 04, 2016 01:33 by Interface Page 9 of 11 pMD [facility] EMERGENCY RECORD Check your milk to make sure it isn't spoiled Follow-up with your primary physician as needed. PRESCRIPTION (19:35 MPUR) Zofran ODT: TABLET, RAPID DISSOLVE : 4 mg : ORAL : Quantity: 1 Unit: tab(s) Route: ORAL Schedule: every 4 hours prn Dispense: 10 May substitute. Refills: No Refills . NOTES: SL prn N & V No Refills. IMAGING (20:25 KASA) *DISCHARGE INSTRUCTIONS RECEIPT: Image captured from scanner. *SUPPLY CHARGE SHEET: Image captured from scanner. ADMIN DIGITAL SIGNATURE: MD Morin Marcus. (SunOct 04, 2016 01:22 MPUR) MD Morin Marcus. (SunOct 04, 2016 01:22 MPUR) MD Morin Marcus. (SunOct 04, 2016 01:25 MPUR) RESULTS (17:54 MPUR) LABORATORY: CBC with Differential Collection DT: SunOct 03, 2016 17:13, *White Blood Cell (WBC) Count 3.1 - L thou/uL, Range (4.8-10.8), HX, *Red Blood Cell (RBC) Count 3.15 - L mill/uL, Range (4.20-5.40), *Hemoglobin 10.0 - L g/dL, Range (12.0-16.0), *Hematocrit 33.5 - L %, Range (36.0-47.0), *Mean Corpuscular Volume 106.0 - H fl, Range (81.0-99.0), *Mean Corpuscular Hemoglobin 31.7 - H pg, Range (27.0-31.0), *Mean Corpuscular HGB CONC 29.8 - L g/dL, Range (32.0-36.0), *RBC Distribution Width 20.2 - H %, Range (11.5-14.5), Platelet Count 137 thou/uL, Range (130-400), Mean Platelet Volume 8.7 fL, Range (7.4-10.4), *%Neutrophils 38.1 - L %, Range (42.0-75.0), %Lymphocytes 37.0 %, Range (21.0-51.0), *%Monocytes 10.2 - H %, Range (0.0-10.0), *%Eosinophils 13.0 - H %, Range (0.0-10.0), *%Basophils 1.7 - H %, Range (0.0-1.0), *#Neutrophils 1.2 - L thou/uL, Range (1.40-6.50), #Lymphocytes 1.2 thou/uL, Range (1.20-3.40), #Monocytes 0.3 thou/uL, Range (0.11-0.59), #Eosinphils 0.4 thou/uL, Range (0.0-0.7), #Basophils 0.1 thou/uL, Range (0.0-0.2). Comprehensive Metabolic Panel Collection DT: SunOct 03, 2016 17:13, Sodium 143 mmol/L, Range (136-145), &a-1R&a+25V*p+0X*p9430T*c202B*c15G*c2P*p-0X&a-25V&a+1R Name: Nimco Singh : 1945 F71 MedRec: [id number] AcctNum: [id number] Prepared: SunOct 04, 2016 01:33 by Interface Page 10 of 11 pMD [facility] EMERGENCY RECORD Potassium 4.0 mmol/L, Range (3.5-5.1), Chloride 102 mmol/L, Range (98-107), Carbon Dioxide 28 mmol/L, Range (23-31), Anion Gap 17 mmol/L, Range (10-20), *BUN (Urea Nitrogen) 24 - H mg/dL, Range (9.8-20.1), *Creatinine 6.12 - H mg/dL, Range (0.6-1.1), Estimated GFR-MDRD 8 , Reference Range for Estimated GFR: Greater than 90, mL/min/1.73 m2 NOTE: The MDRD equation has not been validated for use, with the elderly (over 70 years of age), women, patients with, serious comorbid condition or persons with extremes of body size, muscle, mass, or nutritional status. , *Glucose 77 - L mg/dL, Range (83-110), Calcium 8.3 mg/dL, Range (7.8-10.44), Bilirubin, Total 0.6 mg/dL, Range (0.2-1.2), *Protein, Total 8.2 - H g/dL, Range (5.8-8.1), NOTE: Plasma values are generally 0.3 to 0.5 g/dL higher than serum values, due to the presence of fibrinogen. , Albumin 3.6 g/dL, Range (3.4-4.8), *Globulin 4.6 - H g/dL, Range (2.4-3.5), *Alb/Glob Ratio 0.8 - L g/dL, Range (1.2-2.2), Alkaline Phosphatase 80 U/L, Range (40-150), AST (SGOT) 20 U/L, Range (5-34), ALT (SGPT) 7 U/L, Range (0-55). Alva: EMILY=SONIA Gonzalez, Alo SCHNEIDER=SONIA Webster, Aniya MPUR=MD Morin Marcus &a-1R&a+25V*p+0X*o1096H*c202B*c15G*c2P*p-0X&a-25V&a+1R Name: Nimco Singh : 1945 F71 MedRec: [id number] AcctNum: [id number] Prepared: SunOct 04, 2016 01:33 by Interface Page 11 of 11 pMD MTDD
--- NOTE | 2016-10-03 21:52 | RAD ---
ACUTE ABDOMINAL SERIES THREE VIEWS 10/03/16 CLINICAL HISTORY: Abdominal pain and vomiting. FINDINGS: The chest is grossly stable to 10/02/15 exam. There is no free air beneath the hemidiaphragms. There i s a nonspecific bowel gas pattern. There is air filled bowel involving abdomen and pelvis. Diffuse v ascular calcification is redemonstrated. IMPRESSION: Stable chest. No free air beneath the hemidiaphragm. Nonspecific bowel gas pattern. There are a few nonspecific loops of ectatic air filled bowel of the left upper quadrant on the supine view, less conspicuous on upright view. Correlate clinically. POS: [facility]
== END 2016-10-03 19:41 | disposition home or self-care (01) ==
LOC: NAV ERS 16:35
DX: R11.2 Nausea with vomiting, unspecified (principal); R19.7 Diarrhea, unspecified; I12.0 Hypertensive chronic kidney disease with stage 5 chronic kidney disease or end stage renal disease; N18.6 End stage renal disease; E11.9 Type 2 diabetes mellitus without complications
CPT/HCPCS: 74022; 80053; 85025; 96374; C9113; Q0162

== ENCOUNTER 2016-10-10 07:31 | Emergency (ER) | payer MEDICARE, MEDICAID ==
--- NOTE | 2016-10-10 08:26 | RAD ---
PORTABLE FRONTAL CHEST RADIOGRAPH: Date: 10-10-16 Comparison: 08-21-16 History: Right sided chest pain with palpation and movement, shortness of breath with coughing. FINDINGS: Stable vascular stent material overlies the right supraclavicular region and superior mediastinum on the right. No pneumothorax or pleural fluid. No focal consolidation or alveolar edema. Stable pr ominence of the cardiac silhouette. IMPRESSION: No acute findings. POS: [facility]
[2016-10-10] MEDS ORDERED: Ondansetron ODT 4 MG TAB ONE (08:28)
[2016-10-10 08:55] LABS: Troponin I 0.142 ng/mL (< 0.028)
[2016-10-10 08:56] LABS: ALT (SGPT) 7 U/L (0-55); AST (SGOT) 15 U/L (5-34); Alkaline Phosphatase 81 U/L (40-150); Anion Gap 14 mmol/L (10-20); BUN (Urea Nitrogen) 18 mg/dL (9.8-20.1); Bilirubin, Total 0.6 mg/dL (0.2-1.2); Calc. Creatinine Clearance 0 mL/min (70-130); Calcium 8.6 mg/dL (7.8-10.44); Carbon Dioxide 32 mmol/L (23-31); Chloride 99 mmol/L (98-107); Estimated GFR-MDRD 10; Globulin 4.8 g/dL (2.4-3.5); Protein, Total 8.3 g/dL (5.8-8.1)
[2016-10-10 09:04] LABS: #Eosinphils 0.5 thou/uL (0.0-0.7); #Lymphocytes 1.3 thou/uL (1.20-3.40); #Monocytes 0.3 thou/uL (0.11-0.59); #Neutrophils 0.7 thou/uL (1.40-6.50); %Basophils 1.5 % (0.0-1.0); %Eosinophils 17.8 % (0.0-10.0); %Lymphocytes 46.2 % (21.0-51.0); %Monocytes 10.6 % (0.0-10.0); Hematocrit 34.1 % (36.0-47.0); Mean Platelet Volume 7.9 fL (7.4-10.4); Red Blood Cell (RBC) Count 3.22 mill/uL (4.20-5.40); White Blood Cell (WBC) Count 2.7 thou/uL (4.8-10.8)
[2016-10-10 09:05] LABS: Anisocytosis SLIGHT = 6-15 cells (100X) (0-5/hpf); Macrocytosis SLIGHT = 6-15 cells (100X) (0-5/hpf)
[2016-10-10] MEDS ORDERED: Heparin 1,000 UNITS/ML VIAL ONE (09:50)
--- NOTE | 2016-10-10 10:22 | ERRECORD ---
[facility] EMERGENCY RECORD HPI CHEST PAIN (09:30 AGRE) CHIEF COMPLAINT: Patient presents for evaluation of chest pain. HISTORIAN: History provided by patient, WOKE AT 4 AM WITH RIGHT SIDED CHEST PAIN. HURTS TO TAKE DEEP BREATHS OR LAY ON RT SIDE. NO HX OF SAME. DENIES HX OF DVT OR PE. HAS HX HYPERTENSION, STENTS, DIALYSIS. LOCATION: Symptoms are localized, most severe in the right lower chest. QUALITY: Pain is sharp in nature, described as stabbing. SEVERITY: Maximum severity of symptoms moderate, Currently symptoms are moderate. TIME COURSE: Sudden onset of symptoms, Symptoms are worsening. ASSOCIATED WITH: No associated chills, No associated cough, No associated diaphoresis, No associated fever, No associated nausea, No associated palpitations, Associated with shortness of breath, No associated trauma, No associated upper respiratory infection, No associated vomiting, Denies any other complaints. EXACERBATED BY: Patient's condition exacerbated by deep breaths, Patient's condition exacerbated by palpation of chest. RELIEVED BY: Patient's condition relieved by nothing. ROS (09:32 AGRE) CONSTITUTIONAL: Historian denies chills, denies fever, denies weakness. EYES: Historian denies eye redness, denies vision changes. ENT: Historian denies sore throat, denies stridor. CARDIOVASCULAR: Historian reports chest pain, no radiation, Historian denies diaphoresis, denies dyspnea on exertion, denies edema. RESPIRATORY: Historian denies cough, denies shortness of breath, denies sputum, denies stridor, denies wheezing. GI: Historian denies abdominal pain, denies nausea, denies vomiting. MUSCULOSKELETAL: Historian denies back pain, denies neck pain. SKIN: Historian denies skin changes, denies skin lesions. NEUROLOGIC: Historian denies confusion, denies dizziness, denies focal weakness, denies headache. HEMO/LYMPHATIC: Normal hematologic/lymphatic system review, Historian denies petechiae. PSYCHIATRIC: Negative psychiatric review of systems, Historian denies anxiety. PAST MEDICAL HISTORY (08:42 BDON) MEDICAL HISTORY: Notes: c/o gen. weakness, Past medical history includes pulmonary disease, Hypoxia, uses O2 at home 2L at home., Flu vaccine up to date, Tetanus immunization up to date, &a-1R&a+25V*p+0X*d3464R*c202B*c15G*c2P*p-0X&a-25V&a+1R Name: Nimco Singh : 1945 F71 MedRec: [id number] AcctNum: [id number] Prepared: Francia Oct 10, 2016 17:32 by Interface Page 1 of 5 pMD [facility] EMERGENCY RECORD Pneumococcal vaccine up to date, Past medical history includes renal disease, end stage renal disease, dialysis MWF, history includes cardiac history, congestive heart failure,history of diabetes, Type II, diet controlled, hypertension, which has been treated. FEMALE SURGICAL HISTORY: Surgical history of appendectomy, Surgical history of dialysis shunt, to the right upper extremity, Surgical history of hysterectomy. Dialysis M/W/F. PSYCHIATRIC HISTORY: No previous psychiatric history,. verified 08/21/16. SOCIAL HISTORY: Patient denies alcohol use, Patient has no smoking history, Lives at home, with family, Patient denies alcohol use, Patient denies drug use, Patient has no smoking history. KNOWN ALLERGIES No Known Allergies (Unconfirmed) No Known Drug Allergies CURRENT MEDICATIONS (07:42 BDON) isosorbide mononitrate: TABLET, EXTENDED RELEASE 24 HR : Strength - 30 mg : ORAL Patient Dose: 1 tab(s) Oral once a day. carvedilol: TABLET : Strength - 6.25 mg : ORAL Patient Dose: 1 tab(s) Oral 2 times a day (with meals). hydrALAZINE: TABLET : Strength - 100 mg : ORAL Patient Dose: 1 tab(s) Oral 3 times a day. pravastatin: TABLET : Strength - 20 mg : ORAL Patient Dose: 1 tab(s) Oral once a day (at bedtime). Sensipar: TABLET : Strength - 30 mg : ORAL Patient Dose: 1 tab(s) Oral once a day (in the morning). cloNIDine HCl: TABLET : Strength - 0.3 mg : ORAL Patient Dose: 1 tab(s) Oral 2 times a day. NIFEdipine: TABLET, EXTENDED RELEASE 24 HR : Strength - 90 mg : ORAL Patient Dose: 1 tab(s) Oral once a day. minoxidil: TABLET : Strength - 2.5 mg : ORAL Patient Dose: 2 tab(s) Oral once a day. pantoprazole: TABLET, DELAYED RELEASE (ENTERIC COATED) : Strength - 40 mg : ORAL Patient Dose: 1 tab(s) Oral 2 times a day. albuterol: AEROSOL (GRAM) : Strength - 90 mcg : INHALATION Patient Dose: 2 puff(s) Inhaler every 6 hours PRN. Procrit: VIAL (ML) : Strength - 10,000 unit/mL : INJECTION &a-1R&a+25V*p+0X*l9787K*c202B*c15G*c2P*p-0X&a-25V&a+1R Name: Nimco Singh : 1945 F71 MedRec: [id number] AcctNum: [id number] Prepared: Francia Oct 10, 2016 17:32 by Interface Page 2 of 5 pMD [facility] EMERGENCY RECORD Patient Dose: 7,500 units Subcutaneous. aspirin: TABLET : Strength - 81 mg : ORAL Patient Dose: 1 tab(s) Oral once a day. Renvela: POWDER IN PACKET (EA) : Strength - 2.4 gram : ORAL Patient Dose: 2.4 g Oral 3 times a day. VITAL SIGNS VITAL SIGNS: BP: 197/69, Pulse: 74, Resp: 29, Temp: 98.2 (Oral), Pain: 7, O2 sat: 95, Time: 10/10/2016 07:38. (07:38 BDON) Pulse: 72, Resp: 23, O2 sat: 94, Time: 10/10/2016 08:00. (08:00 BDON) Pulse: 74, Resp: 26, O2 sat: 94, Time: 10/10/2016 08:30. (08:30 BDON) BP: 144/40, Pulse: 72, Resp: 15, O2 sat: 91, Time: 10/10/2016 09:00. (09:00 BDON) PHYSICAL EXAM (09:33 AGRE) CONSTITUTIONAL: Vital Signs Reviewed, Patient afebrile, Patient appears non toxic, Patient appears pain free, Patient alert and oriented to person, place and time, Nursing notes reviewed. HEAD: Head exam included findings of head atraumatic, normocephalic. EYES: Eye exam included findings of eyelids normal to inspection, Extraocular muscles intact, Conjunctiva normal, Sclera normal. ENT: Ear exam normal, Nose exam normal, Mouth exam normal. NECK: Neck exam normal, Neck exam included findings of normal range of motion, no meningeal signs. RESPIRATORY CHEST: Respiratory exam included findings of, Wheezing present, scattered, No rales, No rhonchi, Breath sounds not absent, Breath sounds not diminished, Tenderness, moderate, to the right anterior chest, Palpation of chest reproduces symptoms. CARDIOVASCULAR: Cardiovascular assessment normal, Cardiovascular exam included findings of heart rate regular rate and rhythm, Heart sounds normal, normal S1, normal S2, no murmurs, no rub, no gallop. ABDOMEN FEMALE: Abdominal exam normal, Abdominal exam included findings of abdomen nontender, Bowel sounds normal, Liver normal, Spleen normal, no distension, no mass, no pulsatile masses. BACK: Back exam included findings of normal inspection, range of motion normal. UPPER EXTREMITY: Upper extremity exam included findings of inspection normal, Range of motion normal. LOWER EXTREMITY: Lower extremity exam included findings of inspection normal, Range of motion normal. NEURO: Neuro exam normal, Neuro exam findings include patient oriented to person, place and time, Speech normal, Memory normal, Cranial nerves intact, no focal motor deficits. SKIN: Skin exam included findings of skin warm, dry, and normal in color. PSYCHIATRIC: Psychiatric exam normal, Normal affect. &a-1R&a+25V*p+0X*n2976N*c202B*c15G*c2P*p-0X&a-25V&a+1R Name: Nimco Singh : 1945 F71 MedRec: [id number] AcctNum: [id number] Prepared: Francia Oct 10, 2016 17:32 by Interface Page 3 of 5 D [facility] EMERGENCY RECORD EKG INTERPRETATION (09:35 AGRE) 12 LEAD EKG INTERPRETATION: 12 lead EKG interpreted by Emergency Department Physician at time of study, 12 lead EKG shows normal sinus rhythm, Rate (beats per minute): 77, with no ectopics, Conduction normal, [place] normal, NON-SPECIFIC ST AND T CHANGES. RADIOLOGYINTERPRETATION (09:40 AGRE) PYROMETER MECHANIC: Preliminary review of x-rays by, Radiologist, NO ACUTE FINDINGS. MEDICATION ADMINISTRATION SUMMARY Drug Name: aspirin oral, Dose Ordered: 324 mg, Route: Oral, Status: Given, Time: 10:01 10/10/2016, Drug Name: *heparin (porcine) injection, Dose Ordered: 60 units/kg, Route: IV Push, Status: Given, Time: 09:58 10/10/2016, Drug Name: ondansetron HCl intravenous, Dose Ordered: 4 mg, Route: IV Push, Status: Given, Time: 08:36 10/10/2016, Drug Name: *DuoNeb, Dose Ordered: 3 mL, Route: Nebulize, Status: Given, Time: 08:35 10/10/2016, Drug Name: morphine injection, Dose Ordered: 4 mg, Route: IV Push, Status: Given, Time: 08:34 10/10/2016, *Additional information available in notes, Detailed record available in Medication Service section. DOCTOR NOTES RE-EVALUATION: Routine re-evaluation, after administration of analgesics, The patient's condition has improved. (09:40 AGRE) TEXT: DR BEARD WILL ACCEPT THE PATIENT AT [facility]. (09:24 AGRE) DISCUSSED WITH PATIENT FINDINS ON EXAM, RECOMMENDATIONS FOR TRANSFER FOR ADDITIONAL EVALUATION AND MANAGEMENT. SHE EXPRESSED UNDERSTANDING AND AGREEMENT. (09:40 AGRE) PATIENT STATUS: Patient has improved since arrival to emergency department. (09:40 AGRE) PATIENT PLAN: The patient requires a transfer and will be transferred. (09:40 AGRE) DATA REVIEWED: Lab data reviewed, Xray data reviewed, Reviewed EKG, Old records reviewed. (09:40 AGRE) PROBLEM LIST No recorded problems DIAGNOSIS (09:41 AGRE) FINAL: PRIMARY: CHEST APIN, ADDITIONAL: CHRONIC RENAL FAILURE, ELEVATED TROPONIN, ELEVTED D-DIMER. PRESCRIPTION No recorded prescriptions &a-1R&a+25V*p+0X*s8709Z*c202B*c15G*c2P*p-0X&a-25V&a+1R Name: Nimco Singh : 1945 F71 MedRec: [id number] AcctNum: [id number] Prepared: Francia Oct 10, 2016 17:32 by Interface Page 4 of 5 pMD [facility] EMERGENCY RECORD DISPOSITION PATIENT: Disposition Type: Transfer, Disposition: Transfer to [facility], Disposition Transport: Ambulance, Condition: Improved. (09:29 AGRE) Patient left the department. (10:15 BDON) Alva: AGRE=MD Luke, Braden [place]=SONIA Herrera, Inge &a-1R&a+25V*p+0X*l3573F*c202B*c15G*c2P*p-0X&a-25V&a+1R Name: Nimco Singh : 1945 F71 MedRec: [id number] AcctNum: [id number] Prepared: Francia Oct 10, 2016 17:32 by Interface Page 5 of 5 pMD MTDD
--- NOTE | 2016-10-10 10:29 | PICIS ---
[facility] EMERGENCY RECORD TRIAGE (07:42 BDON) TRIAGE NOTES: Right side chest pain which hurts with palpation and movement, shortness of breath with coughing. (07:42 BDON) PATIENT: NAME: Nimco Singh, AGE: 71, GENDER: female, : Sun1945, TIME OF GREET: SunOct 10, 2016 07:33, PREFERRED LANGUAGE: Macedonian, ETHNICITY: Not or , ECODE BILLING MAP: [facility], SSN: [id number], Zip Code: [address], KG WEIGHT: 56.70, PHONE: , , , PERSON ID: [id number], PCP: Kasia Monte, /Filemon (DERRICK BUILDER). (07:42 BDON) COMPLAINT: HIGH RISK COMPLAINT: CHEST PAIN. (07:42 BDON) ADMISSION: URGENCY: 2 Emergent, ADMISSION SOURCE: Home, TRANSPORT: Walk-in, BED: TRIAGE. (07:42 BDON) ASSESSMENT: Assessment: Right side chest pain worse with movement and palpation, cough present and hoarce voice. (08:42 BDON) LMP: LMP: Not Applicable. (08:42 BDON) PROVIDERS: TRIAGE NURSE: Inge Herrera RN. (07:42 BDON) VITAL SIGNS: BP 197/69, Pulse 74, Resp 29, Temp 98.2, (Oral), Pain 7, O2 Sat 95, Time 10/10/2016 07:38. (07:38 BDON) PREVIOUS VISIT ALLERGIES: No Known Allergies. (07:42 BDON) No Known Allergies. (08:42 BDON) KNOWN ALLERGIES No Known Allergies (Unconfirmed) No Known Drug Allergies CURRENT MEDICATIONS (07:42 BDON) isosorbide mononitrate: TABLET, EXTENDED RELEASE 24 HR : Strength - 30 mg : ORAL Patient Dose: 1 tab(s) Oral once a day. carvedilol: TABLET : Strength - 6.25 mg : ORAL Patient Dose: 1 tab(s) Oral 2 times a day (with meals). hydrALAZINE: TABLET : Strength - 100 mg : ORAL Patient Dose: 1 tab(s) Oral 3 times a day. pravastatin: TABLET : Strength - 20 mg : ORAL Patient Dose: 1 tab(s) Oral once a day (at bedtime). Sensipar: TABLET : Strength - 30 mg : ORAL Patient Dose: 1 tab(s) Oral once a day (in the morning). cloNIDine HCl: TABLET : Strength - 0.3 mg : ORAL Patient Dose: 1 tab(s) Oral 2 times a day. NIFEdipine: TABLET, EXTENDED RELEASE 24 HR : Strength - 90 mg : ORAL Patient Dose: 1 tab(s) Oral once a day. minoxidil: &a-1R&a+25V*p+0X*j6956E*c202B*c15G*c2P*p-0X&a-25V&a+1R Name: Nimco Singh : 1945 F71 MedRec: [id number] AcctNum: [id number] Prepared: Francia Oct 10, 2016 17:39 by Interface Page 1 of 11 pMD [facility] EMERGENCY RECORD TABLET : Strength - 2.5 mg : ORAL Patient Dose: 2 tab(s) Oral once a day. pantoprazole: TABLET, DELAYED RELEASE (ENTERIC COATED) : Strength - 40 mg : ORAL Patient Dose: 1 tab(s) Oral 2 times a day. albuterol: AEROSOL (GRAM) : Strength - 90 mcg : INHALATION Patient Dose: 2 puff(s) Inhaler every 6 hours PRN. Procrit: VIAL (ML) : Strength - 10,000 unit/mL : INJECTION Patient Dose: 7,500 units Subcutaneous. aspirin: TABLET : Strength - 81 mg : ORAL Patient Dose: 1 tab(s) Oral once a day. Renvela: POWDER IN PACKET (EA) : Strength - 2.4 gram : ORAL Patient Dose: 2.4 g Oral 3 times a day. VITAL SIGNS VITAL SIGNS: BP: 197/69, Pulse: 74, Resp: 29, Temp: 98.2 (Oral), Pain: 7, O2 sat: 95, Time: 10/10/2016 07:38. (07:38 BDON) Pulse: 72, Resp: 23, O2 sat: 94, Time: 10/10/2016 08:00. (08:00 BDON) Pulse: 74, Resp: 26, O2 sat: 94, Time: 10/10/2016 08:30. (08:30 BDON) BP: 144/40, Pulse: 72, Resp: 15, O2 sat: 91, Time: 10/10/2016 09:00. (09:00 BDON) NURSING ASSESSMENT: CARDIOVASCULAR (08:00 BDON) CONSTITUTIONAL: Patient arrives, via hospital wheelchair, History obtained from patient, Patient appears, uncomfortable, Patient cooperative, Patient alert, Oriented to person, place and time, Skin warm, Skin dry, Skin normal in color. PAIN: to the right chest. CARDIOVASCULAR: Cardiovascular assessment findings include heart rate normal, no associated syncopal episode, no associated weakness, Notes: right chest wall pain with palpation and movement. RESPIRATORY/CHEST: Respirations regular, Converses, with hoarse voice, Neck and chest exam findings include trachea midline, Chest expansion equal, Associated with cough. SAFETY: Cart/Stretcher in lowest position, Hospital ID band on, Patient in view of the nursing station. NURSING PROCEDURE: BEDSIDE RADIOLOGY (08:03 CCRI) BEDSIDE RADIOLOGY: Bedside radiology performed by CC, Portable chest x-ray performed. NURSING PROCEDURE: INSPECTOR MECHANICAL (07:42 BDON) INSPECTOR MECHANICAL: Cardiac monitoring indicated for complaint of chest pain, Patient placed on pupil personnel worker, Patient placed on non-invasive blood pressure monitor, Patient placed on continuous pulse oximetry. &a-1R&a+25V*p+0X*i9375B*c202B*c15G*c2P*p-0X&a-25V&a+1R Name: Nimco Singh : 1945 F71 MedRec: [id number] AcctNum: [id number] Prepared: Francia Oct 10, 2016 17:39 by Interface Page 2 of 11 pMD [facility] EMERGENCY RECORD NURSING PROCEDURE: EKG CHART (08:12 MSPE) EKG: EKG indicated for complaint of chest pain, EKG indicated for SOB, 12 lead EKG performed on the left chest. FOLLOW-UP: After procedure, EKG for interpretation given to Dr. Butler. NURSING PROCEDURE: IV (09:31 BDON) PATIENT IDENITIFIER: Patient actively involved in identification process. IV SITE 1: IV therapy indicated for hydration, IV therapy indicated for medication administration, IV established, to the left foot, using a 20 gauge catheter, in two attempts, Notes: IV in left ankle ...not foot. NURSING PROCEDURE: NURSE NOTES NURSES NOTES: Notes: Attempted IV start x 1 without success. Phleb at bedside to obtain blood for lab. Dr Butler aware. (08:25 MSPE) Patient is improving, Patient states decreased pain. (09:09 BDON) NURSING PROCEDURE: OXYGEN THERAPY (09:22 BDON) PATIENT IDENTIFIER: Patient actively involved in identification process. OXYGEN THERAPY: Oxygen therapy indicated for desaturation, 2L oxygen given, via nasal cannula. NURSING PROCEDURE: TRANSFER (10:02 BDON) TRANSFER: Reason for transfer need for specialized care, Diagnosis: Elevated trop and D-dimer, chest pain, Accepting institution: [facility], Accepting physician: Sargario, Referring physician: Luke, Transported by urgent ambulance, accompanied by emergency medical services personnel, Report called to receiving facility, Hemalatha RN, Provided opportunity to answer questions, Copy of patient record prepared for receiving facility, Status of patient's valuables documented on chart, Medication reconciliation form prepared and sent to receiving facility. ORDER DETAILS Order Name: B type Natriuretic Peptide, Status: Active, Time: 07:43 10/10/2016, User: CRISTY, - Ordered for: MD Butler Andrea, - Entered by: MD Butler Andrea - Francia Oct 10, 2016 07:43, - Quantity: 1, Order Name: INSPECTOR MECHANICAL ED, Status: Done, Time: 08:25 10/10/2016, User: CAROLINA - Ordered for: MD Butler Andrea, - Entered by: MD Butler Andrea - Francia Oct 10, 2016 07:43, - Quantity: 1, &a-1R&a+25V*p+0X*t1143G*c202B*c15G*c2P*p-0X&a-25V&a+1R Name: Francisco Nimco L : 1945 F71 MedRec: [id number] AcctNum: [id number] Prepared: SunOct 10, 2016 17:39 by Interface Page 3 of 11 pMD [facility] EMERGENCY RECORD Order Name: Cardiac Profile w/CKMB & Troponin - I, Status: Active, Time: 07:43 10/10/2016, User: CRISTY, - Ordered for: MD Butler Andrea, - Entered by: MD Butler Andrea - Tue Oct 10, 2016 07:43, - Quantity: 1, Order Name: CBC with Differential, Status: Active, Time: 07:43 10/10/2016, User: CRISTY, - Ordered for: MD Butler Andrea, - Entered by: MD Butler Andrea - Tue Oct 10, 2016 07:43, - Quantity: 1, Order Name: Comprehensive Metabolic Panel, Status: Active, Time: 07:43 10/10/2016, User: CRISTY, - Ordered for: MD Butler Andrea, - Entered by: MD Butler Andrea - Tue Oct 10, 2016 07:43, - Quantity: 1, Order Name: D-Dimer (Quantitative), Status: Active, Time: 07:51 10/10/2016, User: CRISTY, - Ordered for: MD Butler Andrea, - Entered by: MD Butler Andrea - Tue Oct 10, 2016 07:51, - Quantity: 1, Order Name: EKG 12 Lead in Emergency Room, Status: Active, Time: 07:43 10/10/2016, User: CRISTY, - Ordered for: MD Butler Andrea, - Entered by: MD Butler Andrea - Tue Oct 10, 2016 07:43, - Quantity: 1, Order Name: SALINE LOCK, Status: Done, Time: 09:31 10/10/2016, User: MARISA, - Ordered for: MD Butler Andrea, - Entered by: MD Butler Andrea - Tue Oct 10, 2016 07:43, - Quantity: 1, Order Name: XR Chest 1 View Portable, Status: Active, Time: 07:43 10/10/2016, User: CRISTY, - Ordered for: MD Butler Andrea, - Entered by: MD Butler Andrea - Tue Oct 10, 2016 07:43, - Quantity: 1. MEDICATION ADMINISTRATION SUMMARY Drug Name: aspirin oral, Dose Ordered: 324 mg, Route: Oral, Status: Given, Time: 10:01 10/10/2016, Drug Name: *heparin (porcine) injection, Dose Ordered: 60 units/kg, Route: IV Push, Status: Given, Time: 09:58 10/10/2016, Drug Name: ondansetron HCl intravenous, Dose Ordered: 4 mg, Route: IV Push, Status: Given, Time: 08:36 10/10/2016, Drug Name: *DuoNeb, Dose Ordered: 3 mL, Route: Nebulize, Status: Given, Time: 08:35 10/10/2016, Drug Name: morphine injection, Dose Ordered: 4 mg, Route: IV Push, Status: Given, Time: 08:34 10/10/2016, *Additional information available in notes, Detailed record available in Medication Service section. &a-1R&a+25V*p+0X*i3734G*c202B*c15G*c2P*p-0X&a-25V&a+1R Name: Nimco Singh : 1945 F71 MedRec: [id number] AcctNum: [id number] Prepared: SunOct 10, 2016 17:39 by Interface Page 4 of 11 D [facility] EMERGENCY RECORD MEDICATION SERVICE aspirin oral: Order: aspirin oral (aspirin) - Dose: 324 mg : Oral Ordered by: Braden Butler MD Entered by: Braden Butler MD SunOct 10, 2016 09:45 Documented as given by: Inge Herrera RN SunOct 10, 2016 10:01 Patient, Medication, Dose, Route and Time verified prior to administration. Site: Medication administered P.O., Patient in position of comfort, Side rails up, Cart in lowest position. DuoNeb: Order: DuoNeb (ipratropium bromide/albuterol sulfate) - Dose: 3 mL : Nebulize Notes: (0.5mg Ipratropium [place]/3mg Albuterol Sulfate = 3ml) Ordered by: Braden Butler MD Entered by: Braden Butler MD SunOct 10, 2016 07:52 Documented as given by: Inge Herrera RN SunOct 10, 2016 08:35 Patient, Medication, Dose, Route and Time verified prior to administration. Amount given: 1 amp, Patient in position of comfort, Side rails up, Cart in lowest position. heparin (porcine) injection: Order: heparin (porcine) injection (heparin sodium,porcine) - Dose: 60 units/kg : IV Push Notes: Max bolus dose 4000 units. Ordered by: Braden Butler MD Entered by: Braden Butler MD SunOct 10, 2016 09:46 Documented as given by: Inge Herrera RN SunOct 10, 2016 09:58 Patient, Medication, Dose, Route and Time verified prior to administration. Amount given: 3360 units, Catheter placement confirmed via flush prior to administration, IV site without signs or symptoms of infiltration during medication administration, No swelling during administration, No drainage during administration, IV flushed after administration, Correct patient, time, route, dose and medication confirmed prior to administration, Patient advised of actions and side-effects prior to administration, Allergies confirmed and medications reviewed prior to administration. : Follow Up : No signs or symptoms of allergic reaction noted, iv push. (10:03 BDON) morphine injection: Order: morphine injection (morphine sulfate) - Dose: 4 mg : IV Push Ordered by: Braden Butler MD Entered by: Braden Butler MD SunOct 10, 2016 07:53 Documented as given by: Inge Herrera RN SunOct 10, 2016 08:34 Patient, Medication, Dose, Route and Time verified prior to administration. Amount given: 4 mg IM, no IV site obtained, Dr. Butler aware and changed to IM. : Follow Up : gave IM. (10:03 BDON) ondansetron HCl intravenous: Order: ondansetron HCl intravenous &a-1R&a+25V*p+0X*w7978E*c202B*c15G*c2P*p-0X&a-25V&a+1R Name: Nimco Singh : 1945 F71 MedRec: [id number] AcctNum: [id number] Prepared: SunOct 10, 2016 17:39 by Interface Page 5 of 11 pMD [facility] EMERGENCY RECORD (ondansetron HCl) - Dose: 4 mg : IV Push Ordered by: Braden Butler MD Entered by: Braden Butler MD SunOct 10, 2016 07:53 Documented as given by: Inge Herrera RN SunOct 10, 2016 08:36 Patient, Medication, Dose, Route and Time verified prior to administration. Amount given: 4mg, medication given sub lingual, no IV site. : Follow Up : sub lingual given. (10:03 BDON) HPI CHEST PAIN (09:30 AGRE) CHIEF COMPLAINT: Patient presents for evaluation of chest pain. HISTORIAN: History provided by patient, WOKE AT 4 AM WITH RIGHT SIDED CHEST PAIN. HURTS TO TAKE DEEP BREATHS OR LAY ON RT SIDE. NO HX OF SAME. DENIES HX OF DVT OR PE. HAS HX HYPERTENSION, STENTS, DIALYSIS. LOCATION: Symptoms are localized, most severe in the right lower chest. QUALITY: Pain is sharp in nature, described as stabbing. SEVERITY: Maximum severity of symptoms moderate, Currently symptoms are moderate. TIME COURSE: Sudden onset of symptoms, Symptoms are worsening. ASSOCIATED WITH: No associated chills, No associated cough, No associated diaphoresis, No associated fever, No associated nausea, No associated palpitations, Associated with shortness of breath, No associated trauma, No associated upper respiratory infection, No associated vomiting, Denies any other complaints. EXACERBATED BY: Patient's condition exacerbated by deep breaths, Patient's condition exacerbated by palpation of chest. RELIEVED BY: Patient's condition relieved by nothing. ROS (09:32 AGRE) CONSTITUTIONAL: Historian denies chills, denies fever, denies weakness. EYES: Historian denies eye redness, denies vision changes. ENT: Historian denies sore throat, denies stridor. CARDIOVASCULAR: Historian reports chest pain, no radiation, Historian denies diaphoresis, denies dyspnea on exertion, denies edema. RESPIRATORY: Historian denies cough, denies shortness of breath, denies sputum, denies stridor, denies wheezing. GI: Historian denies abdominal pain, denies nausea, denies vomiting. MUSCULOSKELETAL: Historian denies back pain, denies neck pain. SKIN: Historian denies skin changes, denies skin lesions. NEUROLOGIC: Historian denies confusion, denies dizziness, denies focal weakness, denies headache. &a-1R&a+25V*p+0X*j2637D*c202B*c15G*c2P*p-0X&a-25V&a+1R Name: Nimco Singh : 1945 F71 MedRec: [id number] AcctNum: [id number] Prepared: Francia Oct 10, 2016 17:39 by Interface Page 6 of 11 pMD [facility] EMERGENCY RECORD HEMO/LYMPHATIC: Normal hematologic/lymphatic system review, Historian denies petechiae. PSYCHIATRIC: Negative psychiatric review of systems, Historian denies anxiety. PAST MEDICAL HISTORY (08:42 BDON) MEDICAL HISTORY: Notes: c/o gen. weakness, Past medical history includes pulmonary disease, Hypoxia, uses O2 at home 2L at home., Flu vaccine up to date, Tetanus immunization up to date, Pneumococcal vaccine up to date, Past medical history includes renal disease, end stage renal disease, dialysis MWF, history includes cardiac history, congestive heart failure,history of diabetes, Type II, diet controlled, hypertension, which has been treated. FEMALE SURGICAL HISTORY: Surgical history of appendectomy, Surgical history of dialysis shunt, to the right upper extremity, Surgical history of hysterectomy. Dialysis M/W/F. PSYCHIATRIC HISTORY: No previous psychiatric history,. verified 08/21/16. SOCIAL HISTORY: Patient denies alcohol use, Patient has no smoking history, Lives at home, with family, Patient denies alcohol use, Patient denies drug use, Patient has no smoking history. PHYSICAL EXAM (09:33 AGRE) CONSTITUTIONAL: Vital Signs Reviewed, Patient afebrile, Patient appears non toxic, Patient appears pain free, Patient alert and oriented to person, place and time, Nursing notes reviewed. HEAD: Head exam included findings of head atraumatic, normocephalic. EYES: Eye exam included findings of eyelids normal to inspection, Extraocular muscles intact, Conjunctiva normal, Sclera normal. ENT: Ear exam normal, Nose exam normal, Mouth exam normal. NECK: Neck exam normal, Neck exam included findings of normal range of motion, no meningeal signs. RESPIRATORY CHEST: Respiratory exam included findings of, Wheezing present, scattered, No rales, No rhonchi, Breath sounds not absent, Breath sounds not diminished, Tenderness, moderate, to the right anterior chest, Palpation of chest reproduces symptoms. CARDIOVASCULAR: Cardiovascular assessment normal, Cardiovascular exam included findings of heart rate regular rate and rhythm, Heart sounds normal, normal S1, normal S2, no murmurs, no rub, no gallop. ABDOMEN FEMALE: Abdominal exam normal, Abdominal exam included findings of abdomen nontender, Bowel sounds normal, Liver normal, Spleen normal, no distension, no mass, no pulsatile masses. BACK: Back exam included findings of normal inspection, range of motion normal. UPPER EXTREMITY: Upper extremity exam included findings of inspection normal, Range of motion normal. LOWER EXTREMITY: Lower extremity exam included findings of inspection normal, Range of motion normal. &a-1R&a+25V*p+0X*v9511W*c202B*c15G*c2P*p-0X&a-25V&a+1R Name: Nimco Singh : 1945 F71 MedRec: [id number] AcctNum: [id number] Prepared: SunOct 10, 2016 17:39 by Interface Page 7 of 11 pMD [facility] EMERGENCY RECORD NEURO: Neuro exam normal, Neuro exam findings include patient oriented to person, place and time, Speech normal, Memory normal, Cranial nerves intact, no focal motor deficits. SKIN: Skin exam included findings of skin warm, dry, and normal in color. PSYCHIATRIC: Psychiatric exam normal, Normal affect. LAB INTERPRETATION (09:38 AGRE) INTERPRETATION: Chemistry abnormal, Creatinine elevated, Cardiac enzymes abnormal, Troponin elevated, BNP elevated, D-dimer, elevated. EVENTS TRANSFER: Triage to Emergency Triage. (SunOct 10, 2016 07:42 BDON) Emergency Triage to Emergency Room -05. (07:43 BDON) Removed from Emergency Emergency Room -05. (10:15 BDON) RADIOLOGYINTERPRETATION (09:40 AGRE) COMMUNICATIONS WRITER: Preliminary review of x-rays by, Radiologist, NO ACUTE FINDINGS. EKG INTERPRETATION (09:35 AGRE) 12 LEAD EKG INTERPRETATION: 12 lead EKG interpreted by Emergency Department Physician at time of study, 12 lead EKG shows normal sinus rhythm, Rate (beats per minute): 77, with no ectopics, Conduction normal, [place] normal, NON-SPECIFIC ST AND T CHANGES. O2SAT INTERPRETATION (09:35 AGRE) O2SAT: Continuous pulse oximetry, Oxygen saturation 88%, on room air, Oxygen saturation interpretation: Hypoxic, Intervention required: Oxygen administration. DOCTOR NOTES RE-EVALUATION: Routine re-evaluation, after administration of analgesics, The patient's condition has improved. (09:40 AGRE) TEXT: DR BEARD WILL ACCEPT THE PATIENT AT [facility]. (09:24 AGRE) DISCUSSED WITH PATIENT FINDINS ON EXAM, RECOMMENDATIONS FOR TRANSFER FOR ADDITIONAL EVALUATION AND MANAGEMENT. SHE EXPRESSED UNDERSTANDING AND AGREEMENT. (09:40 AGRE) PATIENT STATUS: Patient has improved since arrival to emergency department. (09:40 AGRE) PATIENT PLAN: The patient requires a transfer and will be transferred. (09:40 AGRE) DATA REVIEWED: Lab data reviewed, Xray data reviewed, Reviewed EKG, Old records reviewed. (09:40 AGRE) PROBLEM LIST &a-1R&a+25V*p+0X*b4269S*c202B*c15G*c2P*p-0X&a-25V&a+1R Name: Nimco Singh : 1945 F71 MedRec: [id number] AcctNum: [id number] Prepared: SunOct 10, 2016 17:39 by Interface Page 8 of 11 pMD [facility] EMERGENCY RECORD No recorded problems DIAGNOSIS (09:41 AGRE) FINAL: PRIMARY: CHEST APIN, ADDITIONAL: CHRONIC RENAL FAILURE, ELEVATED TROPONIN, ELEVTED D-DIMER. DISPOSITION PATIENT: Disposition Type: Transfer, Disposition: Transfer to [facility], Disposition Transport: Ambulance, Condition: Improved. (09:29 AGRE) Patient left the department. (10:15 BDON) PRESCRIPTION No recorded prescriptions IMAGING *EKG: Image captured from scanner. (08:54 MSPE) *MEMORANDUM OF TRANSFER: Image captured from scanner. (09:39 REZE) CONSENTS: Image captured from scanner. (09:39 REZE) *SUPPLY CHARGE SHEET: Image captured from scanner. (10:14 BDON) ADMIN DIGITAL SIGNATURE: SONIA Herrera, Inge. (10:14 BDON) MD Butler Andrea. (17:30 AGRE) RESULTS (09:16 AGRE) RADIOLOGY: XR Chest 1 View Portable Observe DT: SunOct 10, 2016 07:48, CXRP PORTABLE FRONTAL CHEST RADIOGRAPH: Date: 10-10-16 Comparison: 08-21-16 History: Right sided chest pain with palpation and movement, shortness of breath with coughing. FINDINGS: Stable vascular stent material overlies the right supraclavicular region and superior mediastinum on the right. No pneumothorax or pleural fluid. No focal consolidation or alveolar edema. Stable pr ominence of the cardiac silhouette. IMPRESSION: No acute findings. POS: SJ &a-1R&a+25V*p+0X*z9249A*c202B*c15G*c2P*p-0X&a-25V&a+1R Name: Nimco Singh : 1945 F71 MedRec: [id number] AcctNum: [id number] Prepared: SunOct 10, 2016 17:39 by Interface Page 9 of 11 pMD [facility] EMERGENCY RECORD . LABORATORY: B type Natriuretic Peptide Collection DT: SunOct 10, 2016 08:34, *B type Natriuretic Peptide 1468.1 - H pg/mL, Range (0-100). CBC with Differential Collection DT: SunOct 10, 2016 08:34, *White Blood Cell (WBC) Count 2.7 - L thou/uL, Range (4.8-10.8), *Red Blood Cell (RBC) Count 3.22 - L mill/uL, Range (4.20-5.40), *Hemoglobin 10.2 - L g/dL, Range (12.0-16.0), *Hematocrit 34.1 - L %, Range (36.0-47.0), *Mean Corpuscular Volume 106.0 - H fl, Range (81.0-99.0), *Mean Corpuscular Hemoglobin 31.8 - H pg, Range (27.0-31.0), *Mean Corpuscular HGB CONC 30.1 - L g/dL, Range (32.0-36.0), *RBC Distribution Width 20.0 - H %, Range (11.5-14.5), Platelet Count 147 thou/uL, Range (130-400), Mean Platelet Volume 7.9 fL, Range (7.4-10.4), *%Neutrophils 23.9 - L %, Range (42.0-75.0), %Lymphocytes 46.2 %, Range (21.0-51.0), *%Monocytes 10.6 - H %, Range (0.0-10.0), *%Eosinophils 17.8 - H %, Range (0.0-10.0), *%Basophils 1.5 - H %, Range (0.0-1.0), *#Neutrophils 0.7 - L thou/uL, Range (1.40-6.50), #Lymphocytes 1.3 thou/uL, Range (1.20-3.40), #Monocytes 0.3 thou/uL, Range (0.11-0.59), #Eosinphils 0.5 thou/uL, Range (0.0-0.7), #Basophils 0.0 thou/uL, Range (0.0-0.2), Anisocytosis SLIGHT = 6-15 cells (100X), Range (0-5/hpf), Macrocytosis SLIGHT = 6-15 cells (100X), Range (0-5/hpf), PLT Morphology Comment Appears Adequate . D-Dimer (Quantitative) Collection DT: SunOct 10, 2016 08:34, *D-Dimer Test 2.24 - H *mcg/mL, Range (0.27-0.43), * Reference Range Units: mcg/mL of fibrinogen equivalent, units(FEU) Based upon a retrospective study of [facility] patients in January 2006, a result of Less than 0.44 mcg/mL FEU is, predictive of the absence of a DVT or PE. . Comprehensive Metabolic Panel Collection DT: SunOct 10, 2016 08:34, Sodium 141 mmol/L, Range (136-145), Potassium 3.5 mmol/L, Range (3.5-5.1), Chloride 99 mmol/L, Range (98-107), *Carbon Dioxide 32 - H mmol/L, Range (23-31), Anion Gap 14 mmol/L, Range (10-20), BUN (Urea Nitrogen) 18 mg/dL, Range (9.8-20.1), *Creatinine 5.06 - H mg/dL, Range (0.6-1.1), Estimated GFR-MDRD 10 , Reference Range for Estimated GFR: &a-1R&a+25V*p+0X*t7078K*c202B*c15G*c2P*p-0X&a-25V&a+1R Name: Nimco Singh : 1945 F71 MedRec: [id number] AcctNum: [id number] Prepared: SunOct 10, 2016 17:39 by Interface Page 10 of 11 pMD [facility] EMERGENCY RECORD Greater than 90, mL/min/1.73 m2 NOTE: The MDRD equation has not been validated for use, with the elderly (over 70 years of age), women, patients with, serious comorbid condition or persons with extremes of body size, muscle, mass, or nutritional status. , *Glucose 74 - L mg/dL, Range (83-110), Calcium 8.6 mg/dL, Range (7.8-10.44), Bilirubin, Total 0.6 mg/dL, Range (0.2-1.2), *Protein, Total 8.3 - H g/dL, Range (5.8-8.1), NOTE: Plasma values are generally 0.3 to 0.5 g/dL higher than serum values, due to the presence of fibrinogen. , Albumin 3.5 g/dL, Range (3.4-4.8), *Globulin 4.8 - H g/dL, Range (2.4-3.5), *Alb/Glob Ratio 0.7 - L g/dL, Range (1.2-2.2), Alkaline Phosphatase 81 U/L, Range (40-150), AST (SGOT) 15 U/L, Range (5-34), ALT (SGPT) 7 U/L, Range (0-55). Cardiac Profile w/CKMB & TropI Collection DT: SunOct 10, 2016 08:34, CKMB 1.1 ng/mL, Range (0-6.6), *Troponin I 0.142 - H ng/mL, Range (< 0.028), Reference Range , 0.00 - 0.028 ng/mL Negative 0.029 - 0.29 ng/mL , Indeterminate Greater or Equal to 0.3 ng/mL Strongly suggests [place] , . Alva: CRISTY=MD Luke, Braden [place]=SONIA Herrera, Inge NJI=HARVEY Vigil Clemente MSPE=SONIA Pantoja, Edith MATIAS=SONIA Arrington, Roselyn &a-1R&a+25V*p+0X*[id number]*c202B*c15G*c2P*p-0X&a-25V&a+1R Name: Nimco Singh : 1945 [id number] MedRec: [id number] AcctNum: [id number] Prepared: Francia Oct 10, 2016 17:39 by Interface Page 11 of 11 pMD MTDD
[2016-10-10] MEDS ORDERED: Metoclopramide HCl 10 MG TAB ONE (10:52)
== END 2016-10-10 10:02 | disposition home or self-care (01) ==
LOC: NAV ERS 07:31
DX: R07.9 Chest pain, unspecified (principal); R79.89 Other specified abnormal findings of blood chemistry; R79.1 Abnormal coagulation profile; I12.9 Hypertensive chronic kidney disease with stage 1 through stage 4 chronic kidney disease, or unspecified chronic kidney disease; N18.9 Chronic kidney disease, unspecified; I50.9 Heart failure, unspecified; E11.9 Type 2 diabetes mellitus without complications
CPT/HCPCS: 71010; 80053; 82553; 83880; 84484; 85025; 85379; 93005; 96374; 96375; J1644; J2270; Q0162

== ENCOUNTER 2016-11-29 22:15 | Emergency (ER) | payer MEDICARE, MEDICAID ==
[2016-11-29] MEDS ORDERED: Ondansetron ODT 4 MG TAB ONE (22:31)
[2016-11-29 23:14] LABS: #Eosinphils 0.6 thou/uL (0.0-0.7); #Monocytes 0.4 thou/uL (0.11-0.59); #Neutrophils 1.3 thou/uL (1.40-6.50); %Basophils 1.3 % (0.0-1.0); %Eosinophils 18.1 % (0.0-10.0); %Lymphocytes 30.4 % (21.0-51.0); Anisocytosis SLIGHT = 6-15 cells (100X) (0-5/hpf); Hematocrit 33.7 % (36.0-47.0); Macrocytosis SLIGHT = 6-15 cells (100X) (0-5/hpf); Mean Platelet Volume 10.1 fL (7.4-10.4); White Blood Cell (WBC) Count 3.3 thou/uL (4.8-10.8)
[2016-11-29 23:16] LABS: ALT (SGPT) 9 U/L (0-55); AST (SGOT) 19 U/L (5-34); Alkaline Phosphatase 97 U/L (40-150); Anion Gap 18 mmol/L (10-20); BUN (Urea Nitrogen) 14 mg/dL (9.8-20.1); Bilirubin, Total 0.8 mg/dL (0.2-1.2); Calc. Creatinine Clearance 0 mL/min (70-130); Calcium 8.6 mg/dL (7.8-10.44); Carbon Dioxide 28 mmol/L (23-31); Chloride 99 mmol/L (98-107); Estimated GFR-MDRD 15; Globulin 5.1 g/dL (2.4-3.5); Lipase 114 U/L (8-78); Protein, Total 8.8 g/dL (5.8-8.1)
== END 2016-11-29 23:57 | disposition home or self-care (01) ==
LOC: NAV ERS 22:15
DX: K85.90 Acute pancreatitis without necrosis or infection, unspecified (principal); E11.9 Type 2 diabetes mellitus without complications; I13.2 Hypertensive heart and chronic kidney disease with heart failure and with stage 5 chronic kidney disease, or end stage renal disease; N18.6 End stage renal disease; I50.9 Heart failure, unspecified
CPT/HCPCS: 80053; 83690; 85025; 99284; Q0162

== ENCOUNTER 2016-11-30 09:35 | Emergency (ER) | payer MEDICARE, OTHER ==
[2016-11-30] MEDS ORDERED: Sodium Chloride 0.9% 1,000 ML ONE (10:38)
[2016-11-30] MEDS ORDERED: Ondansetron HCl/PF 4 MG/2 ML Vial ONE ×2 (10:38→11:43)
[2016-11-30 11:04] LABS: Lactic Acid - Sepsis 0.7 mmol/L (0.5-2.2)
[2016-11-30 11:09] LABS: ALT (SGPT) 8 U/L (0-55); AST (SGOT) 18 U/L (5-34); Alkaline Phosphatase 76 U/L (40-150); Amylase 323 U/L (20-160); Anion Gap 20 mmol/L (10-20); BUN (Urea Nitrogen) 17 mg/dL (9.8-20.1); Bilirubin, Total 0.8 mg/dL (0.2-1.2); Calc. Creatinine Clearance 0 mL/min (70-130); Calcium 8.4 mg/dL (7.8-10.44); Carbon Dioxide 28 mmol/L (23-31); Chloride 98 mmol/L (98-107); Estimated GFR-MDRD 12; Globulin 4.8 g/dL (2.4-3.5); Lipase 504 U/L (8-78); Protein, Total 8.4 g/dL (5.8-8.1)
[2016-11-30 11:24] LABS: Hematocrit 33.8 % (36.0-47.0); Mean Platelet Volume 7.9 fL (7.4-10.4); Red Blood Cell (RBC) Count 3.11 mill/uL (4.20-5.40)
[2016-11-30 11:25] LABS: Anisocytosis SLIGHT = 6-15 cells (100X) (0-5/hpf); Hypochromia SLIGHT = 6-15 cells (100X) (0-5/hpf); Macrocytosis SLIGHT = 6-15 cells (100X) (0-5/hpf); Neutrophil 30 % (42-75)
[2016-11-30] MEDS ORDERED: Sodium Chloride 0.9% 100 ML ONE (11:44)
[2016-11-30] MEDS ORDERED: ceFAZolin Sodium 1 GM VIAL ONE (11:44)
[2016-11-30 11:52] LABS: White Blood Cell (WBC) Count 2.5 thou/uL (4.8-10.8)
--- NOTE | 2016-11-30 11:53 | ULT ---
GALLBLADDER ULTRASOUND: History: Right upper quadrant abdominal pain. FINDINGS: The gallbladder is mildly distended. The gallbladder wall is mildly thickened measuring 3-4 mm. Ec hogenic sludge is seen within the gallbladder lumen. There are echogenic foci seen which may repres ent small sludge balls. No definite shadowing stone is identified. Common duct is normal caliber a t 4-5 mm. Technologist describes a negative Pennington's sign. The visualized liver appears unremarkable. The pancreas is only partially imaged by overlying bowel gas. The right kidney is partially imaged. The right kidney is abnormal with increased echogenicity and small renal cysts which were described on the prior abdominal ultrasound exam. Findings would indic ate chronic renal disease as noted on the prior exam. IMPRESSION: 1. Gallbladder is abnormal with a mildly thickened wall and evidence of echogenic sludge and/or slu dge balls. No definite shadowing stone identified. Common duct is normal caliber. 2. Abnormal right kidney again noted as described on recent abdominal ultrasound exam. POS: [facility]
== END 2016-11-30 12:18 | disposition short-term general hospital (02) ==
LOC: NAV ERS 09:35
DX: K85.90 Acute pancreatitis without necrosis or infection, unspecified (principal); K81.9 Cholecystitis, unspecified; E11.9 Type 2 diabetes mellitus without complications; D53.9 Nutritional anemia, unspecified; I13.2 Hypertensive heart and chronic kidney disease with heart failure and with stage 5 chronic kidney disease, or end stage renal disease; N18.6 End stage renal disease; I50.9 Heart failure, unspecified
CPT/HCPCS: 76705; 80053; 82150; 83605; 83690; 85025; 93005; 96361; 96365; 96375; 96376; J0690; J2270; J2405; J7050

== ENCOUNTER 2017-01-01 13:49 | Emergency (ER) | payer MEDICARE, OTHER ==
[2017-01-01 15:00] LABS: ALT (SGPT) 12 U/L (0-55); AST (SGOT) 26 U/L (5-34); Albumin 3.7 g/dL (3.4-4.8); Alkaline Phosphatase 142 U/L (40-150); Anion Gap 18 mmol/L (10-20); BUN (Urea Nitrogen) 15 mg/dL (9.8-20.1); Bilirubin, Total 0.7 mg/dL (0.2-1.2); Calc. Creatinine Clearance 0 mL/min (70-130); Calcium 9.2 mg/dL (7.8-10.44); Carbon Dioxide 30 mmol/L (23-31); Chloride 100 mmol/L (98-107); Estimated GFR-MDRD 16; Globulin 5.3 g/dL (2.4-3.5); Glucose 128 mg/dL (83-110); Potassium 3.7 mmol/L (3.5-5.1); Sodium 144 mmol/L (136-145)
[2017-01-01 15:07] LABS: #Eosinphils 0.4 thou/uL (0.0-0.7); #Lymphocytes 0.9 thou/uL (1.20-3.40); #Monocytes 0.4 thou/uL (0.11-0.59); #Neutrophils 0.9 thou/uL (1.40-6.50); %Basophils 1.3 % (0.0-1.0); %Eosinophils 15.3 % (0.0-10.0); %Lymphocytes 35.8 % (21.0-51.0); %Monocytes 14.3 % (0.0-10.0); %Neutrophils 33.4 % (42.0-75.0); Anisocytosis SLIGHT = 6-15 cells (100X) (0-5/hpf); Band 4 % (5-11); Eosinophils 14 % (0-10); Hemoglobin 8.6 g/dL (12.0-16.0); Hypochromia SLIGHT = 6-15 cells (100X) (0-5/hpf); Lymphocytes 33 % (21-51); MDiff Complete? YES; Macrocytosis SLIGHT = 6-15 cells (100X) (0-5/hpf); Mean Corpuscular Hemoglobin 32.8 pg (27.0-31.0); Mean Platelet Volume 9.4 fL (7.4-10.4); Monocytes 17 % (0-10); Neutrophil 31 % (42-75); PLT Morphology Comment Appears Decreased; Platelet Count 71 thou/uL (130-400); Poikilocytosis SLIGHT = 6-15 cells (100X) (0-5/hpf); Polychromasia SLIGHT = 2-3 cells (100X) (0-2/hpf); RBC Distribution Width 18.5 % (11.5-14.5); Red Blood Cell (RBC) Count 2.62 mill/uL (4.20-5.40); White Blood Cell (WBC) Count 2.6 thou/uL (4.8-10.8)
== END 2017-01-01 16:08 | disposition home or self-care (01) ==
LOC: NAV ERS 13:49
DX: D64.9 Anemia, unspecified (principal); E11.9 Type 2 diabetes mellitus without complications; I13.2 Hypertensive heart and chronic kidney disease with heart failure and with stage 5 chronic kidney disease, or end stage renal disease; I50.9 Heart failure, unspecified; N18.6 End stage renal disease
CPT/HCPCS: 36416; 80053; 85025; 99283

== ENCOUNTER 2017-01-11 07:47 | Emergency (ER) | payer MEDICARE, OTHER ==
[2017-01-11] MEDS ORDERED: Ondansetron ODT 4 MG TAB ONE (08:15)
--- NOTE | 2017-01-11 08:45 | RAD ---
KUB AND UPRIGHT: HISTORY: Abdominal pain, nausea, and vomiting. FINDINGS: There is air in both small and large bowel with a moderate amount of stool present. No free air dem onstrated. Postop cholecystectomy changes are seen. Extensive vascular calcifications are present. There are arthritic changes of the spine and hips. PA CHEST: Heart size is enlarged. The lungs are clear of infiltrates. No signs of failure. Right subclavian axillary and brachiocephalic stents are noted on the right side. IMPRESSION: 1. Cardiomegaly. 2. Nonobstructive bowel gas pattern. 3. No acute findings. POS: [facility]
[2017-01-11] MEDS ORDERED: Bisacodyl 10 MG SUPP ONE (10:16)
[2017-01-11] MEDS ORDERED: Bisacodyl 5 MG TAB ONE (11:12)
== END 2017-01-11 12:06 | disposition home or self-care (01) ==
LOC: NAV ERS 07:47
DX: K59.00 Constipation, unspecified (principal); R11.2 Nausea with vomiting, unspecified; E11.9 Type 2 diabetes mellitus without complications; I12.0 Hypertensive chronic kidney disease with stage 5 chronic kidney disease or end stage renal disease; N18.6 End stage renal disease
CPT/HCPCS: 74022; Q0162

== ENCOUNTER 2017-02-13 07:24 | Emergency (ER) | payer MEDICARE, OTHER ==
[2017-02-13 08:30] LABS: CKMB 1.1 ng/mL (0-6.6); Troponin I 0.031 ng/mL (< 0.028)
[2017-02-13 08:40] LABS: ALT (SGPT) 6 U/L (8-55); AST (SGOT) 17 U/L (5-34); Albumin 3.4 g/dL (3.4-4.8); Alkaline Phosphatase 78 U/L (40-150); Anion Gap 15 mmol/L (10-20); BUN (Urea Nitrogen) 22 mg/dL (9.8-20.1); Bilirubin, Total 0.6 mg/dL (0.2-1.2); CK (CPK) 76 U/L (29-168); Calc. Creatinine Clearance 0 mL/min (70-130); Calcium 8.7 mg/dL (7.8-10.44); Carbon Dioxide 32 mmol/L (23-31); Chloride 100 mmol/L (98-107); Estimated GFR-MDRD 11; Globulin 4.5 g/dL (2.4-3.5); Glucose 71 mg/dL (83-110); Potassium 3.4 mmol/L (3.5-5.1); Protein, Total 7.9 g/dL (6.0-8.3); Sodium 144 mmol/L (136-145)
[2017-02-13 08:42] LABS: #Eosinphils 0.2 thou/uL (0.0-0.7); #Monocytes 0.3 thou/uL (0.11-0.59); #Neutrophils 0.5 thou/uL (1.40-6.50); %Basophils 0.8 % (0.0-1.0); %Eosinophils 10.6 % (0.0-10.0); %Lymphocytes 49.9 % (21.0-51.0); %Monocytes 14.8 % (0.0-10.0); %Neutrophils 23.9 % (42.0-75.0); Hemoglobin 8.2 g/dL (12.0-16.0); MDiff Complete? YES; Mean Corpuscular HGB CONC 30.5 g/dL (32.0-36.0); Mean Corpuscular Hemoglobin 32.8 pg (27.0-31.0); Mean Platelet Volume 7.3 fL (7.4-10.4); Platelet Count 115 thou/uL (130-400); RBC Distribution Width 19.8 % (11.5-14.5); Red Blood Cell (RBC) Count 2.51 mill/uL (4.20-5.40)
[2017-02-13 08:43] LABS: Anisocytosis SLIGHT = 6-15 cells (100X) (0-5/hpf); Eosinophils 10 % (0-10); Hypochromia SLIGHT = 6-15 cells (100X) (0-5/hpf); Lymphocytes 32 % (21-51); Macrocytosis SLIGHT = 6-15 cells (100X) (0-5/hpf); Monocytes 14 % (0-10); Neutrophil 44 % (42-75); PLT Morphology Comment Appears Decreased
--- NOTE | 2017-02-13 08:56 | RAD ---
CHEST 1 VIEW: HISTORY: Dyspnea. Weakness. COMPARISON: 01/06/17. FINDINGS: The cardiac silhouette is magnified and enlarged. Pulmonary vasculature is upper limits of normal. Mediastinum is midline with aortic calcification. Metallic stents overlying the right subclavian v essels and superior vena cava are similar in appearance to the prior study. Osseous structures are demineralized. IMPRESSION: 1. Cardiomegaly. 2. Atherosclerosis. POS: [facility]
== END 2017-02-13 09:43 | disposition home or self-care (01) ==
LOC: NAV ERS 07:24
DX: F32.9 Major depressive disorder, single episode, unspecified (principal); E11.9 Type 2 diabetes mellitus without complications; I12.0 Hypertensive chronic kidney disease with stage 5 chronic kidney disease or end stage renal disease; N18.6 End stage renal disease
CPT/HCPCS: 71010; 80053; 82550; 82553; 84484; 85025; 93005

== ENCOUNTER 2017-03-01 07:32 | Emergency (ER) | payer MEDICARE, OTHER ==
[2017-03-01] MEDS ORDERED: Lidocaine Viscous Sol 2% 15 ml UD Cup ONE ×3 (08:13→12:32)
[2017-03-01] MEDS ORDERED: Mag-Al Plus 1200 MG/1200 MG/120 MG/30 ML UDCUP ONE ×2 (08:14→12:30)
[2017-03-01 09:07] LABS: ALT (SGPT) 20 U/L (8-55); AST (SGOT) 30 U/L (5-34); Albumin 3.7 g/dL (3.4-4.8); Alkaline Phosphatase 88 U/L (40-150); Anion Gap 19 mmol/L (10-20); BUN (Urea Nitrogen) 26 mg/dL (9.8-20.1); Bilirubin, Total 0.8 mg/dL (0.2-1.2); Calc. Creatinine Clearance 0 mL/min (70-130); Calcium 9.3 mg/dL (7.8-10.44); Carbon Dioxide 27 mmol/L (23-31); Chloride 95 mmol/L (98-107); Estimated GFR-MDRD 11; Globulin 5.1 g/dL (2.4-3.5); Glucose 79 mg/dL (83-110); Lipase 67 U/L (8-78); Potassium 3.9 mmol/L (3.5-5.1); Protein, Total 8.8 g/dL (6.0-8.3); Sodium 137 mmol/L (136-145)
[2017-03-01 09:09] LABS: #Eosinphils 0.1 thou/uL (0.0-0.7); #Lymphocytes 0.6 thou/uL (1.20-3.40); #Monocytes 0.2 thou/uL (0.11-0.59); %Basophils 1.3 % (0.0-1.0); %Eosinophils 2.6 % (0.0-10.0); %Lymphocytes 21.6 % (21.0-51.0); %Monocytes 5.8 % (0.0-10.0); %Neutrophils 68.7 % (42.0-75.0); Anisocytosis SLIGHT = 6-15 cells (100X) (0-5/hpf); Hemoglobin 10.2 g/dL (12.0-16.0); MDiff Complete? YES; Macrocytosis SLIGHT = 6-15 cells (100X) (0-5/hpf); Mean Corpuscular HGB CONC 31.1 g/dL (32.0-36.0); Mean Corpuscular Hemoglobin 32.3 pg (27.0-31.0); Mean Platelet Volume 9.5 fL (7.4-10.4); PLT Morphology Comment Appears Adequate; Platelet Count 133 thou/uL (130-400); RBC Distribution Width 17.9 % (11.5-14.5); Red Blood Cell (RBC) Count 3.17 mill/uL (4.20-5.40); White Blood Cell (WBC) Count 2.8 thou/uL (4.8-10.8)
[2017-03-01] MEDS ORDERED: diphenhydrAMINE HCl 25 MG CAP ONE (10:21)
--- NOTE | 2017-03-01 11:58 | RAD ---
FRONTAL VIEW CHEST: Comparison: 02-29-16 Indication: Hypertension. FINDINGS: There is evidence of progressive edema. Enlargement of the cardiac silhouette and prominent pulmonar y vascular are present with bilateral alveolar opacification and right pleural fluid. No additional significant interval change. IMPRESSION: Progressive edema likely related to decompensated CHF. Continued follow up imaging is recommended. POS: [facility]
== END 2017-03-01 13:20 | disposition short-term general hospital (02) ==
LOC: NAV ERS 07:32
DX: I13.2 Hypertensive heart and chronic kidney disease with heart failure and with stage 5 chronic kidney disease, or end stage renal disease (principal); I50.9 Heart failure, unspecified; N18.6 End stage renal disease; I25.10 Atherosclerotic heart disease of native coronary artery without angina pectoris; E11.22 Type 2 diabetes mellitus with diabetic chronic kidney disease; Z79.899 Other long term (current) drug therapy; Z79.82 Long term (current) use of aspirin
CPT/HCPCS: 71010; 80053; 82150; 83690; 85025